=== PATIENT | male | born 1935 | race Caucasian/White ===

== ENCOUNTER 2016-12-24 09:27 | Outpatient (CLI) | payer MEDICARE | END 2016-12-24 09:28 | disposition home or self-care (01) | DX: N18.9 Chronic kidney disease, unspecified (principal); Z79.899 Other long term (current) drug therapy ==

== ENCOUNTER 2017-03-17 13:24 | Outpatient (CLI) | payer MEDICARE | END 2017-03-17 13:25 | disposition home or self-care (01) | DX: N18.9 Chronic kidney disease, unspecified (principal) ==

== ENCOUNTER 2017-07-02 09:52 | Outpatient (CLI) | payer MEDICARE ==
--- NOTE | 2017-07-02 11:21 | XRAY Report ---
THREE VIEW RIGHT KNEE: 07/02/2017 CLINICAL INDICATION: Pain. FINDINGS: Standing frontal, lateral, and sunrise views of the right knee were performed. Minimal osteoarthritis is present, with tiny osteophytes. There is no evidence of acute fracture or d islocation. No effusion is present. IMPRESSION: MINIMAL OSTEOARTHRITIS. JOB #: [id number] EXT JOB #:[id number]
== END 2017-07-02 09:53 | disposition home or self-care (01) ==
LOC: DI 09:52
PROVIDERS: ATTEND Nurse Practitioner Primary Care
DX: M25.561 Pain in right knee (principal); M17.11 Unilateral primary osteoarthritis, right knee

== ENCOUNTER 2017-12-13 08:36 | Emergency (ER) | payer MEDICARE ==
[2017-12-13 08:43] VITALS: BP 139/69
--- NOTE | 2017-12-13 09:52 | ED Physician Documentation ---
PD HPI Fall - Stated complaint Stated Complaint: GLF/BACK PX - Chief complaint Chief Complaint: Back Pain - History obtained from History obtained from: Patient - History of Present Illness Mechanism of injury: Slipped Fall distance: Standing position Where injury occurred: Home Timing - onset: How many days ago (10) Injury(ies) location: Back Quality of pain: Pain Associated symptoms: No: LOC, AMS, Amnesia Symptoms improve with: Rest, Meds Worsens with: Movement, Palpation Contributing factors: No: Anticoagulated Similar symptoms before: Has not had sx before Recently seen: Not recently seen - Additional information Additional information: 82-year-old male with a history of hypertension was walking down some steps missed last step and landed on the upper portion of his back across the steps. He has had some pain in between his shoulder blades since that time it is persisted here at 10 days and he is having some pain around to the front as well. He does not have shortness of breath he does have pain with a deep breath. Review of Systems Constitutional: denies: Fever Eyes: denies: Decreased vision Ears: denies: Ear pain Nose: denies: Congestion Throat: denies: Sore throat Cardiac: denies: Chest pain / pressure, Palpitations Respiratory: denies: Dyspnea, Cough GI: reports: Abdominal Pain. denies: Nausea, Vomiting, Constipation, Diarrhea : denies: Dysuria, Frequency Skin: denies: Rash Musculoskeletal: reports: Back pain. denies: Neck pain, Extremity pain Neurologic: denies: Generalized weakness, Focal weakness, Numbness PD PAST MEDICAL HISTORY - Past Medical History Past Medical History: Yes Cardiovascular: Hypertension - Past Surgical History Past Surgical History: Yes General: Cholecystectomy - Present Medications Home Medications: Ambulatory Orders Medication Instructions Recorded Confirmed Aspirin [Children's Aspirin] 81 mg PO DAILY 09/11/13 05/03/15 Finasteride 5 mg PO DAILY 09/11/13 05/03/15 Hydrochlorothiazide 25 mg PO DAILY 09/11/13 05/03/15 Lisinopril 40 mg PO DAILY 09/11/13 05/03/15 NIFEdipine [Procardia Xl] 60 mg PO DAILY 09/11/13 05/03/15 Pravastatin Sodium [Pravachol] 80 mg PO DAILY 09/11/13 05/03/15 Acetaminophen/Cod 300/30 [Tylenol 1 tab PO DAILY 03/22/15 05/03/15 #3] - Allergies Allergies/Adverse Reactions: Allergies Allergy/AdvReac Type Severity Reaction Status Date / Time No Known Drug Allergies Allergy Verified 09/22/14 12:03 - Social History Does the pt smoke?: No Smoking Status: Never smoker Does the pt drink ETOH?: Yes Does the pt have substance abuse?: No - Immunizations Immunizations are current?: Yes PD ED PE NORMAL - Vitals Vital signs reviewed: Yes (hypertensive ) - General General: Alert and oriented X 3, No acute distress, Well developed/nourished - HEENT HEENT: Atraumatic, PERRL, EOMI - Neck Neck: Supple, no meningeal sign - Cardiac Cardiac: RRR, No murmur - Respiratory Respiratory: No respiratory distress, Clear bilaterally, Other (There is point tenderness to the mid upper back between the shoulder blades. There is tenderness midline. ) - Abdomen Abdomen: Soft, Non tender, Other (well healed surgical scars) - Back Back: No CVA TTP - Derm Derm: Normal color, Warm and dry, No rash - Extremities Extremities: No deformity, No edema - Neuro Neuro: Alert and oriented X 3, No motor deficit, No sensory deficit, Normal speech Eye Opening: Spontaneous Motor: Obeys Commands Verbal: Oriented GCS Score: 15 - Psych Psych: Normal mood, Normal affect Results - Vitals Vitals: Vital Signs - 24 hr 12/13/17 08:40 Temperature 36.0 C L Heart Rate 69 Respiratory 18 Rate Blood Pressure 139/69 H O2 Saturation 94 Oxygen O2 Source Room air Departure - Departure Disposition: 01 Home, Self Care Clinical Impression: Mass in chest Compression fracture of thoracic vertebra Qualifiers: Encounter type: initial encounter Fracture type: closed Qualified Code(s): S22.000A - Wedge compression fracture of unspecified thoracic vertebra, initial encounter for closed fracture Condition: Stable Instructions: ED Fx Comp Vertebral Follow-Up: Stephanie Conway PA-C [Primary Care Provider] - Comments: Today it appears the cause of the pain you are having your back is related to a compression fracture in the thoracic spine. This will cause you pain for about another month. It should lessen over the next 2 weeks. On your evaluation today an x-ray of your chest was obtained that shows concern for a mass in the left upper chest. You will need follow-up with your primary care doctor for further testing.
--- NOTE | 2017-12-13 10:01 | XRAY Report ---
EXAM: CHEST RADIOGRAPHY EXAM DATE: 12/13/2017 09:24 AM. CLINICAL HISTORY: Sob. COMPARISON: 04/20/2008. TECHNIQUE: 2 views. FINDINGS: Lungs/Pleura: New superior left upper lobe perihilar mass like opacity, 1.6 x 3 x 1.3 cm and new patc hy focal opacity in the left upper lobe evident. No pleural effusion. No pneumothorax. Mediastinum: Interval new or significant worsening mitral annular calcification without cardiomegaly is noted; there is small to moderate size hiatal hernia, moderately increased size since last exam. IMPRESSION: 1. New superior left upper lobe perihilar mass like opacity, 1.6 x 3 x 1.3 cm and new patchy focal op acity in the left upper lobe, suggesting new left upper lobe pulmonary malignant process, lung cancer versus left upper lobe pneumonia with hilar adenopathy; continued chest imaging follow up or further evaluation with chest CT using IV contrast is recommended. 2. Moderately sized hiatal hernia. 3. Interval new or significant worsening mitral annular calcification without cardiomegaly without ev idence of congestive heart failure. 4. Small moderately sized hiatal hernia. [facility] Referring Provider Line: [phone] SITE ID: [id number]
== END 2017-12-13 11:09 | disposition home or self-care (01) ==
LOC: ED 08:36
DX: R22.2 Localized swelling, mass and lump, trunk (principal); S22.000A Wedge compression fracture of unspecified thoracic vertebra, initial encounter for closed fracture; W01.0XXA Fall on same level from slipping, tripping and stumbling without subsequent striking against object, initial encounter; Y92.009 Unspecified place in unspecified non-institutional (private) residence as the place of occurrence of the external cause; I10 Essential (primary) hypertension
CPT/HCPCS: 71046; 93005; 99282; 99283

== ENCOUNTER 2017-12-24 11:10 | Outpatient (CLI) | payer MEDICARE ==
[2017-12-24] MEDS ORDERED: IOPAMIDOL-300 100 ML VIAL ONE (12:03)
[2017-12-24 13:01] LABS: CREATININE 1.6 mg/dL (0.6-1.2)
[2017-12-24] MEDS ORDERED: IOPAMIDOL-300 100 ML VIAL IVP ONE (17:14)
--- NOTE | 2017-12-24 18:32 | CT Report ---
EXAM: CT CHEST EXAM DATE: 12/24/2017 02:46 PM. CLINICAL HISTORY: Left upper lobe consolidation. COMPARISONS: Chest x-ray 12/13/2017. TECHNIQUE: Routine helical CT imaging was performed through the chest. IV contrast: 40 mL of Isovue-3 00. Reconstructions: Coronal and sagittal. In accordance with CT protocol optimization, one or more of the following dose reduction techniques w ere utilized for this exam: automated exposure control, adjustment of mA and/or KV based on patient s ize, or use of iterative reconstructive technique. FINDINGS: Lungs/Pleura: Spiculated central 3.1 x 4.7 cm left upper lobe mass. Peripheral right upper lobe 3 mm groundglass nodule, image 18 series 4. No bronchial thickening, consolidation, or edema. Pulmonary va sculature is normal. No pericardial or pleural effusion. No pneumothorax. Mediastinum: Moderate hiatal hernia. Aortic and coronary artery calcification noted. Mitral valve rep lacement noted.. No adenopathy or masses. The heart and great vessels are normal. Bones: Moderate T7 burst fracture with mild retropulsion. Visualized Abdomen: Subcentimeter liver low densities, likely cysts. Other: None. IMPRESSION: 1. Spiculated central left upper lobe mass concerning for neoplasm. 2. Moderate hiatal hernia. 3. Stable moderate T7 burst fracture. [facility] Referring Provider Line: [phone] SITE ID: [id number]
== END 2017-12-24 11:11 | disposition home or self-care (01) ==
LOC: DI 11:10
PROVIDERS: ATTEND Physician Assistant Medical
DX: R91.8 Other nonspecific abnormal finding of lung field (principal); S22.061D Stable burst fracture of T7-T8 vertebra, subsequent encounter for fracture with routine healing; K44.9 Diaphragmatic hernia without obstruction or gangrene; N18.9 Chronic kidney disease, unspecified
CPT/HCPCS: 36415; 71260; 82565; Q9967

== ENCOUNTER 2018-01-13 09:48 | Outpatient (CLI) | payer MEDICARE ==
--- NOTE | 2018-01-13 11:01 | XRAY Report ---
TWO VIEW CHEST: 01/13/2018 COMPARISON: Chest CT 12/24/2017. INDICATION: Cough. TECHNIQUE: Two views. FINDINGS: Left upper lobe mass is again noted and has a similar appearance to recent CT. No focal consolidation is seen in other regards. No pneumothorax or pleural effusion. Mitral valve annular calcification is noted. T7 fracture appears stable. IMPRESSION: LEFT UPPER LOBE MASS. NO FOCAL CONSOLIDATION OTHERWISE. TD: 01/13/2018 11:01 [facility]
== END 2018-01-13 09:49 | disposition home or self-care (01) ==
LOC: DI 09:48
PROVIDERS: ATTEND Physician Assistant Medical
DX: R91.8 Other nonspecific abnormal finding of lung field (principal)
CPT/HCPCS: 71046

== ENCOUNTER 2018-02-16 19:40 | Observation (INO) | payer MEDICARE ==
[2018-02-16] MEDS ORDERED: oxyCODONE 5 MG TABLET PO STA (20:04)
--- NOTE | 2018-02-16 20:05 | ED Physician Documentation ---
History of Present Illness - Stated complaint Stated Complaint: LEFT SIDE PX - Chief complaint Chief Complaint: General - History obtained from History obtained from: Patient, Family - History of Present Illness Timing: Other (He had a fine-needle biopsy of a lung mass done yesterday in [place] around 2 PM. Per the daughter he had a postprocedural x-ray without evidence of pneumothorax. About an hour ago he developed left-sided chest soreness without shortness of breath.) Review of Systems Constitutional: denies: Fever, Chills Cardiac: reports: Chest pain / pressure. denies: Palpitations Respiratory: denies: Dyspnea, Cough GI: denies: Abdominal Pain, Nausea, Vomiting PD PAST MEDICAL HISTORY - Past Medical History Cardiovascular: Hypertension - Past Surgical History Past Surgical History: Yes General: Cholecystectomy - Present Medications Home Medications: Ambulatory Orders Medication Instructions Recorded Confirmed Aspirin [Children's Aspirin] 81 mg PO DAILY 09/11/13 05/03/15 Finasteride 5 mg PO DAILY 09/11/13 05/03/15 Hydrochlorothiazide 25 mg PO DAILY 09/11/13 05/03/15 Lisinopril 40 mg PO DAILY 09/11/13 05/03/15 NIFEdipine [Procardia Xl] 60 mg PO DAILY 09/11/13 05/03/15 Pravastatin Sodium [Pravachol] 80 mg PO DAILY 09/11/13 05/03/15 Acetaminophen/Cod 300/30 [Tylenol 1 tab PO DAILY 03/22/15 05/03/15 #3] - Allergies Allergies/Adverse Reactions: Allergies Allergy/AdvReac Type Severity Reaction Status Date / Time No Known Drug Allergies Allergy Verified 02/16/18 19:49 - Social History Does the pt smoke?: No Smoking Status: Never smoker Does the pt drink ETOH?: Yes Does the pt have substance abuse?: No - Immunizations Immunizations are current?: Yes PD ED PE NORMAL - Vitals Vital signs reviewed: Yes - General General: Alert and oriented X 3, No acute distress - HEENT HEENT: PERRL, EOMI - Neck Neck: Supple, no meningeal sign, No bony TTP - Cardiac Cardiac: RRR, No murmur - Respiratory Respiratory: No respiratory distress, Clear bilaterally - Abdomen Abdomen: Non tender - Extremities Extremities: No edema, No calf tenderness / cord - Neuro Neuro: Alert and oriented X 3, Normal speech - Psych Psych: Normal mood, Normal affect Results - Vitals Vitals: Vital Signs - 24 hr 02/16/18 19:46 Temperature 36.7 C Heart Rate 69 Respiratory 18 Rate Blood Pressure 160/76 H O2 Saturation 98 Oxygen O2 Source Room air - EKG (time done) 2009 Rate: Rate (enter#) (67) Rhythm: NSR Colony: Normal Intervals: Normal SC QRS: Normal Ischemia: Non specific changes (Mild inferior and lateral ST depression which is similar and unchanged from last EKG on file dated December [id number].) Computer interpretation: Agree with computer - Rads (name of study) 2v chest Radiology: EMP read contemporaneously (9 mm left apical pneumothorax) PD MEDICAL DECISION MAKING - ED course ED course: 32-year-old gentleman with symptoms a day after fine-needle biopsy of a lung mass and is found to have a small pneumothorax, spoke with Dr. Hussein for observation as he will need to be monitored and have a repeat chest x-ray in the morning to confirm its stability. Departure - Departure Disposition: ED Place in Observation Clinical Impression: Pneumothorax after biopsy Condition: Good Discharge Date/Time: 02/16/18 21:41
--- NOTE | 2018-02-16 20:47 | XRAY Report ---
EXAM: CHEST RADIOGRAPHY EXAM DATE: 02/16/2018 08:38 PM. CLINICAL HISTORY: L chest pain s/p FNA BX. COMPARISON: 13 January 2018. TECHNIQUE: 2 views. FINDINGS: Lungs/Pleura: Small left pneumothorax measuring about 9 mm at the apex. Left upper lobe mass and othe r chronic findings again noted. No effusion. Mediastinum: Heart and mediastinal contours are unremarkable. Calcifications of mitral annulus. Other: Small amount of subcutaneous emphysema on the left. IMPRESSION: Small left apical pneumothorax. [facility] The above findings were discussed with Dr. George by Dr. Kirby Salazar at 20:46 hrs on 02/16/18. Referring Provider Line: [phone] SITE ID: [id number]
[2018-02-16] MEDS ORDERED: oxyCODONE 5 MG TABLET PO PRN (21:05)
[2018-02-16] MEDS ORDERED: SODIUM CHLORIDE FLUSH 0.9% 10 ML SYRINGE IVP PRN (21:05)
[2018-02-16] MEDS ORDERED: ACETAMINOPHEN 325 MG TABLET PO PRN (21:05)
[2018-02-16] MEDS ORDERED: ONDANSETRON ODT 4 MG TABLET TL PRN (21:05)
[2018-02-16] MEDS ORDERED: MORPHINE 2 MG/ML SYRINGE IVP PRN (23:24)
[2018-02-16] MEDS ORDERED: KETOROLAC 15 MG/ML VIAL IVP PRN (23:25)
--- NOTE | 2018-02-16 23:30 | HISTORY & PHYSICAL EXAMINATION ---
Chief Complaint - Chief Complaint Chief Complaint: left sided chest pain that is sharp and stabbing History of Present Illness - Admitted From Admitted From:: ED/home - History Obtained From Records Reviewed: [facility] History obtained from: Patient and Dr. Martinez Exam Limitations: pleuritic pain takes his breath away and can't speak for a moment - History of Present Illness HPI Comment/Other: He had a biopsy of the lung mass done yesterday at [facility]. It post procedure chest x-ray was negative for pneumothorax. Today he started having pleuritic chest pain, and it has been getting steadily worse. He was brought to the emergency room where he has a small pneumothorax. He is now placed in observation to make sure the pneumothorax isn't getting any bigger. At this time he does not require a chest tube. He had fallen down the stairs at his daughter's house. He broke a vertebral body and had been getting followup films for that. During that evaluation he was found to have a mass on the lung and that was followed by subsequent CAT scan and lung biopsy. He denies any antecedent complaints of fever, cough, chills. He has been eating well and has no unexpected weight changes. He was an ex-smoker. Started smoking at the age of 8 and smoked a pack a day until approximately 1977. History - Past Medical History Cardiovascular: reports: Hypertension Respiratory: reports: Other (left lung mass as above) Neuro: reports: None Endocrine/Autoimmune: reports: None GI: reports: Hiatal hernia (with hiatal hernia repair. 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 He denies a history of hypertension, cancer, heart disease, thyroid disease, etc. He had 7 siblings. He is the youngest. They are all gone. He has 5 children. Again he denies a history of hypertension, cancer, heart disease or thyroid disease in them. He feels they're all really healthy Living arrangement: At home Living Situation: With family Social History Notes: He was born [place]. 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 He was to his first for 47 years and she in 2000. He was to his second and she in 2005. He moved to [facility] in 1997 to be close to one of his daughter who was in the [place]. He lived at the apartments at [facility] with his first until she . His second is a nurse who worked in [place] before her . He moved in with his daughter a little over a year ago because he needs help. But he still independent with regards to dress himself, feeding himself, and doesn' t use a walker. He started smoking at the age of 8, and quit in 1977 of one pack per day. He never had a problem with alcohol abuse. And he never did recreational substance abuse. - Substance History Use: Uses substance without health or social issues: NONE Abuse: Recurrent use of substance despite neg consequences: NONE - POLST Patient has POLST: No POLST Status: DNR Meds/Allgy - Home Medications Home Medications: Ambulatory Orders Medication Instructions Recorded Confirmed Aspirin [Children's Aspirin] 81 mg PO DAILY 09/11/13 05/03/15 Finasteride 5 mg PO DAILY 09/11/13 05/03/15 Hydrochlorothiazide 25 mg PO DAILY 09/11/13 05/03/15 Lisinopril 40 mg PO DAILY 09/11/13 05/03/15 NIFEdipine [Procardia Xl] 60 mg PO DAILY 09/11/13 05/03/15 Pravastatin Sodium [Pravachol] 80 mg PO DAILY 09/11/13 05/03/15 Acetaminophen/Cod 300/30 [Tylenol 1 tab PO DAILY 03/22/15 05/03/15 #3] - Allergies Allergies/Adverse Reactions: Allergies Allergy/AdvReac Type Severity Reaction Status Date / Time No Known Drug Allergies Allergy Verified 02/16/18 19:49 Review of Systems - Constitutional Constitutional: denies: Fatigue, Fever, Chills, Malaise, Weakness, Poor appetite , Night sweats - Eyes Eyes: denies: Pain, Irritation, Amaurosis, Blurred vision, Field loss - Ears, Nose & Throat Ears, Nose & Throat: reports: Hearing loss, Hearing aids. denies: Ear pain, Tinnitus, Vertigo, Nasal pain, Nasal discharge, Nasal congestion - Cardiovascular Cariovascular: reports: Chest pain (currently and since this am). denies: Irregular heart rate, Palpitations, Lightheadedness, Syncope - Respiratory Respiratory: reports: Pleuritic pain (since this morning). denies: Cough, Sputum production, Wheezing, Snoring - Gastrointestinal Gastrointestinal: denies: Abdominal pain, Abdominal distention, Constipation, Diarrhea, Change in bowel habits, Rectal bleeding, Nausea, Vomiting - Genitourinary Genitourinary: reports: Frequency, Urgency, Nocturia. denies: Dysuria, Hematuria, Incontinence, Flank pain - Musculoskeletal Musculoskeletal: reports: Stiffness, Joint pain (mild with major joints as he got older). denies: Muscle pain, Back pain, Muscle aches - Integumentary Integumentary: denies: Rash, Pruritis, Lesions, Dryness - Neurological Neurological: denies: General weakness, Focal weakness, Headache, Dizziness - Psychiatric Psychiatric: denies: Depression, Anxiety, Suicidal - Endocrine Endocrine: denies: Polyuria, Polydypsia, Polyphagia - Hematologic/Lymphatic Hematologic/Lymphatic: denies: Anemia, Bruising, Petechiae Exam - Vital Signs Reviewed Vital Signs: Yes Vital Signs: Vital Signs x48h Temp Pulse Resp BP Pulse Ox 02/16/18 21:19 37 C 63 20 139/73 H 97 - Physical Exam General Appearance: positive: Alert, Moderate distress (from the intermittent sharp stabbing left sided chest pain.) Eyes Bilateral: positive: PERRL, EOMI ENT: positive: Pharynx nml, Other (deaf with right hearing aide in place) Neck: positive: No JVD. negative: Stiff neck, Carotid bruit Respiratory: positive: Other (but he moans with the stabbing pain left chest, breath sounds equal, thorax expands w deep breath and he hurts). negative: Wheezes, Rales, Rhonchi Cardiovascular: positive: Regular rate & rhythm. negative: Systolic murmur, Gallop/S4, Friction rub Abdomen: positive: Non-tender, No organomegaly, Nml bowel sounds, No distention , Other (scar from hiatal hernia repair) Skin: positive: No rash, Warm, Dry Extremities: positive: Non-tender, Full ROM, No pedal edema Neurologic/Psychiatric: positive: Oriented x3, CN's nml (2-12) (except very deaf , even w hearing aide.), Motor nml Conclusion/Plan - Problem List (1) Pneumothorax after biopsy Conclusion/Plan: biopsy was done yesterday. small on CXR Plan: place in OBV Nasal canula O2 since some anecdotal studies show that O2 helps close up pneumothorax faster. manage pain. oxycodone isn't helping so will add morphine and toradol to let him sleep tonight repeat CXR in am If stable CXR can go home. (2) HTN (hypertension) Conclusion/Plan: mildly uncontrolled with sysolics >140 at 160-161 systolic. may be from his pain. resume ususal meds. Qualifiers: Hypertension type: essential hypertension Qualified Code(s): I10 - Essential (primary) hypertension - Lab Results Lab results reviewed: Yes - Diagnostic Imaging Results Diagnostic Imaging Results: positive: Final report reviewed - EKG Results EKG Interpreted Independently: No Core Measures - Anticipated LOS I expect patient to be DC'd or transferred within 96 hours.: Yes - DVT/VTE - Prophylaxis VTE/DVT Device ordered at admit?: Yes
[2018-02-17] MEDS: SODIUM CHLORIDE FLUSH 0.9% 10 ML SYRINGE IVP SCH ×2 (00:21→10:27)
[2018-02-17] MEDS: PANTOPRAZOLE 40 MG TABLET PO SCH ×2 (00:58→05:47)
[2018-02-17 08:46] LABS: BASOPHILS % (AUTO) 0.3 %; EOSINOPHILS % (AUTO) 0.4 %; HGB - HEMOGLOBIN 12.6 g/dL (14.0-18.0); LYMPHOCYTES # (AUTO) 0.9 10^3/uL (1.5-3.5); LYMPHOCYTES % (AUTO) 9.1 %; MEAN CORPUSCULAR HEMOGLOBIN 33.3 pg (27.0-31.0); MEAN CORPUSCULAR HGB CONC 33.5 g/dL (32.0-36.0); MEAN CORPUSCULAR VOLUME 99.2 fL (80.0-94.0); MEAN PLATELET VOLUME 10.1 fL (7.4-11.4); MONOCYTES # (AUTO) 0.7 10^3/uL (0.0-1.0); MONOCYTES % (AUTO) 7.4 %; NEUTROPHILS # (AUTO) 8.2 10^3/uL (1.5-6.6); NEUTROPHILS % (AUTO) 82.8 %; PLT - PLATELET COUNT 169 10^3/uL (130-450); RED CELL DISTRIBUTION WIDTH 13.5 % (12.0-15.0); WHITE BLOOD COUNT 9.9 x10^3/uL (4.8-10.8)
[2018-02-17 08:59] LABS: ALBUMIN 3.9 g/dL (3.2-5.5); ALBUMIN/GLOBULIN RATIO 1.3 (1.0-2.2); BILIRUBIN,TOTAL 0.8 mg/dL (0.2-1.0); CALCIUM 8.8 mg/dL (8.5-10.3); CREATININE 1.6 mg/dL (0.6-1.2); TOTAL PROTEIN 6.8 g/dL (6.7-8.2)
[2018-02-17] MEDS ORDERED: NIFEdipine ER 30 MG TABLET PO SCH (09:00)
[2018-02-17] MEDS ORDERED: hydroCHLOROthiazide 25 MG TABLET PO SCH (09:00)
[2018-02-17] MEDS ORDERED: FINASTERIDE 5 MG TABLET PO SCH (09:00)
[2018-02-17] MEDS ORDERED: LISINOPRIL 20 MG TABLET PO SCH (09:00)
[2018-02-17] MEDS ORDERED: POLYETHYLENE GLYCOL 3350 17 GM PACKET PO SCH (09:00)
[2018-02-17] MEDS ORDERED: ASPIRIN CHEW 81 MG TABLET PO SCH (09:00)
--- NOTE | 2018-02-17 10:14 | XRAY Report ---
TWO VIEW CHEST: 02/17/2018 CLINICAL INDICATION: Followup left pneumothorax. FINDINGS: Frontal and lateral views of the chest demonstrate a stable small left apical pneumothorax. Left upper lobe mass is unchanged. Right lung remains clear. Small left effusion is present. IMPRESSION: STABLE SMALL LEFT PNEUMOTHORAX AND LEFT LUNG NODULE. TD: 02/17/2018 10:14
[2018-02-17 10:15] VITALS: BP 112/54
--- NOTE | 2018-02-17 11:32 | Discharge Plan ---
Discharge Plan Disposition: Home, Self Care Condition: Stable Prescriptions: oxyCODONE [Roxicodone] 5 mg PO Q4HR PRN #20 tablet PRN Reason: Pain 5 to 7 Diet: Regular Activity Restrictions: Activity as Tolerated Shower Restrictions: No (caregiver closely monitor, fall precaution) Instruction Topics: Pneumothorax, Oxycodone tablets or capsules Additional Instructions or Follow Up instructions: May follow up PCP on next Wednesday as pt's already scheduled. Should symptoms return or worsen, may present ER or call 911 for help. No Smoking: If you smoke, Please STOP! Call for help. Follow-up with: Stephanie Conway PA-C [Primary Care Provider] -
--- NOTE | 2018-02-17 11:38 | DISCHARGE SUMMARY ---
Discharge Summary Discharge Date: 02/17/18 Discharging Provider: DANIELS Primary Care Provider: Stephanie Elaine Condition at Discharge: Stable Discharge Disposition: 01 Home, Self Care Discharge Facility Name: home - DIAGNOSES Admission Diagnoses: (1) Pneumothorax after biopsy (2) HTN (hypertension) Discharge Diagnoses with Status of Each Condition: (1) Pneumothorax after biopsy stable in the second CXR, which reveals stable small penumothorax and left lung nodule. Pt did lung biopsy for the nodule in [place], he will have appointment with his manager speech on early next week. Pt denies any more chest pleurisy pain (2) HTN (hypertension) stable, continue to be managed by PCP. - HPI History of Present Illness: refer from Dr. Hussein's HPI on 02/16/18 for pt as the following: He had a biopsy of the lung mass done yesterday at [facility]. It post procedure chest x-ray was negative for pneumothorax. Today he started having pleuritic chest pain, and it has been getting steadily worse. He was brought to the emergency room where he has a small pneumothorax. He is now placed in observation to make sure the pneumothorax isn't getting any bigger. At this time he does not require a chest tube. He had fallen down the stairs at his daughter's house. He broke a vertebral body and had been getting followup films for that. During that evaluation he was found to have a mass on the lung and that was followed by subsequent CAT scan and lung biopsy. He denies any antecedent complaints of fever, cough, chills. He has been eating well and has no unexpected weight changes. He was an ex-smoker. Started smoking at the age of 8 and smoked a pack a day until approximately 1977. - HOSPITAL COURSE Hospital Course: pt was admitted in observation unit to monitor if his small penumothorax deteriorate. The second CXR reveals stable, no deterioration. Pt denies any more pleurisy pain. - ALLERGIES Allergies/Adverse Reactions: Allergies Allergy/AdvReac Type Severity Reaction Status Date / Time No Known Drug Allergies Allergy Verified 02/16/18 19:49 - MEDICATIONS Home Medications: Ambulatory Orders Medication Instructions Recorded Confirmed Aspirin [Children's Aspirin] 81 mg PO DAILY 09/11/13 02/17/18 Finasteride 5 mg PO DAILY 09/11/13 02/17/18 NIFEdipine [Procardia Xl] 30 mg PO BID 09/11/13 02/17/18 Pravastatin Sodium [Pravachol] 80 mg PO QPM 09/11/13 02/17/18 Acetaminophen/Cod 300/30 [Tylenol 1 tab PO TID PRN 03/22/15 02/17/18 #3] Acetaminophen [Tylenol Extra 500 - 1,000 mg PO Q6H PRN 02/17/18 02/17/18 Strength] Acetaminophen/Diphenhydramine 1 - 2 tab PO QPM PRN 02/17/18 02/17/18 [Tylenol Pm Ex-Strength Caplet] Albuterol Sulfate [Proair 1 - 2 puffs INH Q4H PRN 02/17/18 02/17/18 Respiclick] Lisinopril [Zestril] 20 mg PO DAILY 02/17/18 02/17/18 Metoprolol Succinate [Toprol Xl] 100 mg PO DAILY 02/17/18 02/17/18 Multivitamin [Theragran] 1 each PO DAILY 02/17/18 02/17/18 oxyCODONE [Roxicodone] 5 mg PO Q4HR PRN #20 tablet 02/17/18 - PHYSICAL EXAM AT DISCHARGE General Appearance: positive: No acute distress, Alert. negative: Lethargic Eyes Bilateral: positive: Normal inspection, PERRL, No lid inflammation, Conjunctivae nml ENT: positive: ENT inspection nml, Pharynx nml, No signs of dehydration. negative: Purulent nasal drainage, Pharyngeal erythema, Oral lesions Neck: positive: Nml inspection, Thyroid nml, No JVD, Trachea midline. negative : Thyromegaly, Lymphadenopathy (R), Lymphadenopathy (L), Stiff neck, Carotid bruit, Swelling/bruising, Tracheal deviation Respiratory: positive: Chest non-tender, No respiratory distress, Breath sounds nml. negative: Wheezes, Rales, Rhonchi Cardiovascular: positive: Regular rate & rhythm, No murmur, No gallop. negative : Irregularly irregular, Extrasystoles, Tachycardia, Bradycardia, Systolic murmur, Diastolic murmur Peripheral Pulses: positive: 2+ Abdomen: positive: Non-tender, No organomegaly, Nml bowel sounds, No distention. negative: Tenderness, Guarding, Rebound Back: positive: Nml inspection. negative: CVA tenderness (R), CVA tenderness (L ) Skin: positive: Color nml, No rash, Warm, Dry. negative: Cyanosis, Diaphoresis , Pallor Extremities: positive: Non-tender, Full ROM, Nml appearance. negative: Calf tenderness, Joint swelling, Namita's sign/cords Neurologic/Psychiatric: positive: Oriented x3, Sensation nml, Mood/affect nml. negative: Sensory loss, Facial droop, Slurred/abnml speech, Depressed mood/ affect - LABS Result Diagrams: 02/17/18 08:41 02/17/18 08:41 - FOLLOW UP Follow Up: May follow up PCP in 2-3 days, and follow up manager speech appointment as the schedule. Should symptoms return or worsen, may present ER or call 911 for help. - TIME SPENT Time Spent in Discharge (Minutes): 35
[2018-02-17] MEDS ORDERED: PRAVASTATIN 40 MG TABLET PO SCH (21:00)
== END 2018-02-17 12:47 | disposition home or self-care (01) ==
LOC: ED 19:40 → OBS 21:05
PROVIDERS: ADMIT Specialist; ATTEND Nurse Practitioner Gerontology
DX: J95.811 Postprocedural pneumothorax (principal); Y84.8 Other medical procedures as the cause of abnormal reaction of the patient, or of later complication, without mention of misadventure at the time of the procedure; I10 Essential (primary) hypertension; R91.1 Solitary pulmonary nodule; N40.1 Benign prostatic hyperplasia with lower urinary tract symptoms; R35.0 Frequency of micturition; R35.1 Nocturia; R39.15 Urgency of urination; H91.91 Unspecified hearing loss, right ear; Z79.82 Long term (current) use of aspirin; Z91.81 History of falling; Z87.891 Personal history of nicotine dependence; Z66 Do not resuscitate
CPT/HCPCS: 36415; 71046; 80053; 83735; 85025; 93005; 96374; 96375; 99283; 99284; A9270; G0378; J2270

== ENCOUNTER 2018-03-09 12:37 | Outpatient (CLI) | payer MEDICARE ==
[2018-03-09] MEDS ORDERED: GADOBUTROL 7.5 MMOL/7.5 ML SYRINGE ONE (12:53)
[2018-03-09] MEDS ORDERED: GADOBUTROL 7.5 MMOL/7.5 ML SYRINGE IVP ONE (13:31)
--- NOTE | 2018-03-10 10:20 | MRI Report ---
EXAM: MRI BRAIN WITHOUT AND WITH CONTRAST. EXAM DATE: 03/09/2018 01:35 PM. CLINICAL HISTORY: Adenocarcinoma of the left lung. Tumor staging. Evaluate for metastasis to the brai n. COMPARISON: 06/15/2007. TECHNIQUE: Multiplanar, multisequence T1-weighted and fluid-sensitive MR sequences of the brain were performed. Sequences optimized for routine evaluation. Other: None. IV Contrast: 7ML GADAVIST. FINDINGS: No intracranial enhancing or space occupying mass is seen to suggest the presence of intracranial met astatic disease. No acute hemorrhage or stroke. No mass effect or midline shift. [id number] diffuse atrophy. Moderately prominent and progressive patchy, nodular and confluent cerebral white matter disease, lik yennifer from aging and chronic microangiopathy involving the deep and periventricular regions of both cer ebral hemispheres. 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 No focal pathologic appearing marrow signal changes in the skull and clivus. Multifocal paranasal sinus mucosal thickening. Left maxillary sinus air-fluid level. Right maxillary sinus mucosal retention cyst. Loss of the normal distal left ICA flow void. This was present previously and is suggestive of chroni c left ICA occlusion. IMPRESSION: 1. No evidence for acute intracranial abnormality. 2. No evidence for brain metastasis. 3. Progressive generalized moderately prominent senescent changes. 4. Sinusitis. 5. 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 [facility] Referring Provider Line: [phone] SITE ID: [id number]
== END 2018-03-09 12:38 | disposition home or self-care (01) ==
LOC: DI 12:37
PROVIDERS: ATTEND Physician Assistant Medical
DX: C34.92 Malignant neoplasm of unspecified part of left bronchus or lung (principal); J32.9 Chronic sinusitis, unspecified
CPT/HCPCS: 70553; A9585

== ENCOUNTER 2018-05-09 05:55 | Outpatient (CLI) | payer MEDICARE | END 2018-05-09 05:56 | disposition critical access hospital (66) | LOC: EMS 05:55 | PROVIDERS: ATTEND Surgery | DX: R52 Pain, unspecified (principal) | CPT/HCPCS: A0425; A0429 ==

== ENCOUNTER 2018-05-09 06:06 | Emergency (ER) | payer MEDICARE ==
[2018-05-09] MEDS ORDERED: SODIUM CHLORIDE 0.9% 500 ML IV ONE (06:38)
[2018-05-09] MEDS ORDERED: MORPHINE 10 MG/ML VIAL IVP STA (06:38)
[2018-05-09] MEDS ORDERED: ONDANSETRON 4 MG/2 ML VIAL IVP STA (06:38)
--- NOTE | 2018-05-09 07:09 | ED Physician Documentation ---
PD HPI CHEST PAIN - Stated complaint Stated Complaint: INCISION PAIN - Chief complaint Chief Complaint: Wound - History obtained from History obtained from: Patient - History of Present Illness Timing - onset: How many days ago (4) Timing - onset during: Light activity (he had thorascopic upper lobectomy left side for lung CA 4 days ago and discharged yesterday. Had been getting pain meds in the hospital. Discharged with Rx but had not gotten it filled as yet. Had more pain left chest today. Denies any worse dyspnea, and denies fevers.) Timing - duration: Days (worse today) Timing - details: Gradual onset, Waxing and waning Quality: Sharp, Pain Location: Left chest Radiation: Abdominal Improved by: Rest Worsened by: Inspiration, Movement Associated symptoms: Shortness of air (since surgery), Other (no BM for 4 days) . No: Nausea, Vomiting, Feeling faint / dizzy Recently seen: Surgery (Rosa Jean, upper lobectomy on left.) Review of Systems Constitutional: denies: Fever, Chills Nose: denies: Rhinorrhea / runny nose, Congestion Throat: denies: Sore throat Cardiac: reports: Chest pain / pressure. denies: Palpitations Respiratory: reports: Dyspnea, Cough (mild). denies: Wheezing GI: reports: Abdominal Pain, Constipation. denies: Nausea, Vomiting, Diarrhea : denies: Dysuria, Frequency Musculoskeletal: denies: Extremity swelling Neurologic: reports: Generalized weakness. denies: Focal weakness, Numbness PD PAST MEDICAL HISTORY - Past Medical History Cardiovascular: Hypertension Respiratory: Other Endocrine/Autoimmune: None GI: Hiatal hernia [employer]: None : Benign prostate hypertrophy HEENT: Chronic hearing loss Psych: None Musculoskeletal: Osteoarthritis Derm: None - Past Surgical History Past Surgical History: Yes General: Cholecystectomy Cardiovascular: Lobectomy - Present Medications Home Medications: Ambulatory Orders Medication Instructions Recorded Confirmed Aspirin [Children's Aspirin] 81 mg PO DAILY 09/11/13 02/17/18 Finasteride 5 mg PO DAILY 09/11/13 02/17/18 NIFEdipine [Procardia Xl] 30 mg PO BID 09/11/13 02/17/18 Pravastatin Sodium [Pravachol] 80 mg PO QPM 09/11/13 02/17/18 Acetaminophen/Cod 300/30 [Tylenol 1 tab PO TID PRN 03/22/15 02/17/18 #3] Acetaminophen [Tylenol Extra 500 - 1,000 mg PO Q6H PRN 02/17/18 02/17/18 Strength] Acetaminophen/Diphenhydramine 1 - 2 tab PO QPM PRN 02/17/18 02/17/18 [Tylenol Pm Ex-Strength Caplet] Albuterol Sulfate [Proair 1 - 2 puffs INH Q4H PRN 02/17/18 02/17/18 Respiclick] Lisinopril [Zestril] 20 mg PO DAILY 02/17/18 02/17/18 Metoprolol Succinate [Toprol Xl] 100 mg PO DAILY 02/17/18 02/17/18 Multivitamin [Theragran] 1 each PO DAILY 02/17/18 02/17/18 oxyCODONE [Roxicodone] 5 mg PO Q4HR PRN #20 tablet 02/17/18 - Allergies Allergies/Adverse Reactions: Allergies Allergy/AdvReac Type Severity Reaction Status Date / Time No Known Drug Allergies Allergy Verified 05/09/18 06:15 - Social History Does the pt smoke?: No Smoking Status: Never smoker Does the pt drink ETOH?: Yes Does the pt have substance abuse?: No - Immunizations Immunizations are current?: Yes - POLST Patient has POLST: No POLST Status: DNR PD ED PE NORMAL - Vitals Vital signs reviewed: Yes - General General: Alert and oriented X 3, Well developed/nourished - HEENT HEENT: Atraumatic, Pharynx benign - Neck Neck: Supple, no meningeal sign, No adenopathy, No JVD, No bruit - Cardiac Cardiac: RRR, Other (1/6 murmur left side.) - Respiratory Respiratory: No: Clear bilaterally (decreased sounds left base, but no wheezing nor coarse sounds. ) - Abdomen Abdomen: Normal bowel sounds, Soft, Non distended, No organomegaly, Other ( tender left abdomen without guarding. ) - Male Male : Deferred - Rectal Rectal: Deferred - Back Back: No CVA TTP - Derm Derm: Normal color, Warm and dry - Extremities Extremities: No deformity, No tenderness to palpate, Normal ROM s pain, No edema , No calf tenderness / cord - Neuro Neuro: Alert and oriented X 3, No motor deficit, No sensory deficit, Normal speech Eye Opening: Spontaneous Motor: Obeys Commands Verbal: Oriented GCS Score: 15 Results - Vitals Vitals: Oxygen O2 Source Room air - Labs Labs: Laboratory Tests 05/09/18 05/09/18 05/09/18 07:07 07:07 07:07 WBC 7.8 RBC 3.65 L Hgb 12.3 L Hct 37.5 L MCV 102.8 H MCH 33.8 H MCHC 32.8 RDW 13.0 Plt Count 223 MPV 9.6 Neut # (Auto) 6.5 Lymph # (Auto) 0.6 L Loup # (Auto) 0.6 Eos # (Auto) 0.1 Baso # (Auto) 0.0 Absolute Nucleated RBC 0.00 Nucleated RBC % 0.0 Sodium 141 Potassium 4.3 Chloride 110 Carbon Dioxide 21 Anion Gap 10.0 BUN 33 H Creatinine 1.7 H Estimated GFR (MDRD) 39 L Glucose 146 H Calcium 8.8 Magnesium 2.0 Total Bilirubin 0.9 AST 16 ALT 11 Alkaline Phosphatase 51 Total Creatine Kinase 77 Troponin I < 0.04 B-Natriuretic Peptide Total Protein 6.7 Albumin 3.2 Globulin 3.5 Albumin/Globulin Ratio 0.9 L Lipase 20 L Urine Color Urine Clarity Urine pH Ur Specific [place] Urine Protein Urine Glucose (UA) Urine Ketones Urine Occult Blood Urine Nitrite Urine Bilirubin Urine Urobilinogen Ur Leukocyte Esterase Ur Microscopic Review Urine Culture Comments 05/09/18 05/09/18 07:07 10:40 WBC RBC Hgb Hct MCV MCH MCHC RDW Plt Count MPV Neut # (Auto) Lymph # (Auto) Loup # (Auto) Eos # (Auto) Baso # (Auto) Absolute Nucleated RBC Nucleated RBC % Sodium Potassium Chloride Carbon Dioxide Anion Gap BUN Creatinine Estimated GFR (MDRD) Glucose Calcium Magnesium Total Bilirubin AST ALT Alkaline Phosphatase Total Creatine Kinase Troponin I B-Natriuretic Peptide 459 H Total Protein Albumin Globulin Albumin/Globulin Ratio Lipase Urine Color YELLOW Urine Clarity CLEAR Urine pH 6.0 Ur Specific [place] 1.025 Urine Protein NEGATIVE Urine Glucose (UA) NEGATIVE Urine Ketones TRACE Urine Occult Blood NEGATIVE Urine Nitrite NEGATIVE Urine Bilirubin NEGATIVE Urine Urobilinogen 0.2 (NORMAL) Ur Leukocyte Esterase NEGATIVE Ur Microscopic Review NOT INDICATED Urine Culture Comments NOT INDICATED - Rads (name of study) chest xray Radiology: Prelim report reviewed (small pneumothorax on left, 10 mm compared to 7 mm yesterday. Small effusion. ) abd CT Radiology: Prelim report reviewed (no acute findings) PD MEDICAL DECISION MAKING - ED course Complexity details: reviewed results (persistent pneumothorax, slightly larger than yesterday. Will check with CT surgery to see if significant.), considered differential (Seems post op pain and he did not get Rx for meds. Will give some pain meds. Check labs and CXR. He has some abd tender, so will get CT. ), d/w patient, d/w family (family considers if Rehab would be good, but patient wants to go home. ), d/w organizational research consultant (Dr. Jean, who said CXR findings are okay c/w postop. ) - Sepsis Event Vital Signs: Oxygen O2 Source Room air Departure - Departure Disposition: Home, Self Care Clinical Impression: Post-op pain, Tachycardia, Pneumothorax on left Condition: Stable Record reviewed to determine appropriate education?: Yes Follow-Up: Stephanie Conway PA-C [Primary Care Provider] - ARLENE JEAN MD [Physician No Access] - Comments: Continue usual medications. Your heart rate is a little fast this morning which might be related to not having had your morning medications. Might have been some under hydration. Your given some IV fluids. You do have a small persistent pneumothorax around the lung on that side and Dr. Jean said this is normal and is the same as it was in the hospital. This should resolve on its own over several more days to week. This can be increasing the amount of pain on that side. Use some anti-inflammatories such as naproxen or ibuprofen twice daily. He will likely need your prescription pain medicines a few times a day still for the next several days to week. Add a stool softener such as docusate to reduce constipation. Call Dr. Jean's office if not improved over the next few days or follow-up with your primary care. Discharge Date/Time: 05/09/18 13:31
[2018-05-09 07:13] LABS: BASOPHILS % (AUTO) 0.2 %; EOSINOPHILS # (AUTO) 0.1 10^3/uL (0.0-0.7); EOSINOPHILS % (AUTO) 1.7 %; HGB - HEMOGLOBIN 12.3 g/dL (14.0-18.0); LYMPHOCYTES # (AUTO) 0.6 10^3/uL (1.5-3.5); LYMPHOCYTES % (AUTO) 7.3 %; MEAN CORPUSCULAR HEMOGLOBIN 33.8 pg (27.0-31.0); MEAN CORPUSCULAR HGB CONC 32.8 g/dL (32.0-36.0); MEAN CORPUSCULAR VOLUME 102.8 fL (80.0-94.0); MEAN PLATELET VOLUME 9.6 fL (7.4-11.4); MONOCYTES # (AUTO) 0.6 10^3/uL (0.0-1.0); MONOCYTES % (AUTO) 7.7 %; NEUTROPHILS # (AUTO) 6.5 10^3/uL (1.5-6.6); NEUTROPHILS % (AUTO) 83.1 %; PLT - PLATELET COUNT 223 10^3/uL (130-450); RED BLOOD COUNT 3.65 10^6/uL (4.70-6.10); WHITE BLOOD COUNT 7.8 x10^3/uL (4.8-10.8)
[2018-05-09 07:27] LABS: ALBUMIN 3.2 g/dL (3.2-5.5); ALBUMIN/GLOBULIN RATIO 0.9 (1.0-2.2); BILIRUBIN,TOTAL 0.9 mg/dL (0.2-1.0); CALCIUM 8.8 mg/dL (8.5-10.3); CREATININE 1.7 mg/dL (0.6-1.2); TOTAL PROTEIN 6.7 g/dL (6.7-8.2)
[2018-05-09] MEDS ORDERED: IOPAMIDOL-300 100 ML VIAL ONE (07:40)
--- NOTE | 2018-05-09 08:03 | XRAY Report ---
Procedure Date: 05/09/2018 Accession Number: [id number] / [id number] Procedure: XR - Chest 2 View X-Ray CPT Code: 09253 FULL RESULT: EXAM: CHEST RADIOGRAPHY EXAM DATE: 05/09/2018 07:32 AM. CLINICAL HISTORY: CP. Recent thorascopic wedge resection. COMPARISON: 05/08/2018 (images only; no report) from [facility] [place]. TECHNIQUE: 2 views. 3 images are provided. FINDINGS: Lungs/Pleura: Small left pneumothorax with 10 mm pleural separation at the apex, previously 7 mm. No right pneumothorax. Small left pleural effusion. No definite right pleural effusion. Mild elevation of the left hemidiaphragm as before. Hazy and reticular left basilar opacities. No focal consolidation on the right. Mediastinum: The cardiac silhouette is normal in size. Atherosclerotic, mildly tortuous thoracic aorta as before. Other: None. IMPRESSION: Small left pneumothorax, minimally increased in size compared to yesterday. Small left pleural effusion with associated atelectasis versus consolidation, also increased compared to prior. Results discussed with Dr. Hdez at 0750 hrs. [facility]
--- NOTE | 2018-05-09 08:14 | CT Report ---
Procedure Date: 05/09/2018 Accession Number: [id number] / [id number] Procedure: CT - Abdomen/Pelvis W/O CPT Code: FULL RESULT: EXAM: CT ABDOMEN AND PELVIS (CT KUB) EXAM DATE: 05/09/2018 07:44 AM. CLINICAL HISTORY: LEFT ABDOMEN PAIN, POST OP day 4 left lung lOBECTOMY. COMPARISONS: None. TECHNIQUE: Routine axial helical CT imaging was performed through the abdomen and pelvis without IV contrast. Reconstructions: Coronal and sagittal. In accordance with CT protocol optimization, one or more of the following dose reduction techniques were utilized for this exam: automated exposure control, adjustment of mA and/or KV based on patient size, or use of iterative reconstructive technique. FINDINGS: Lung Bases: Trace right pleural effusion. Small to moderate left hydropneumothorax is partially imaged; there is up to 31 mm pleural separation anteriorly. The heart size is normal. Trace pericardial effusion. Mitral annular calcification. [id number] paraesophageal hiatal hernia. Right Kidney/Ureter: 7 mm nonobstructing upper pole calculus. Moderate atrophy. No hydronephrosis. Mild perinephric stranding may be chronic. Left Kidney/Ureter: No hydronephrosis or urinary tract calculi. Severe atrophy. Moderate perinephric stranding may be chronic. Other Solid Organs: Noncontrast images of the solid organs are grossly unremarkable. Gallbladder/Bile Ducts: The gallbladder is surgically absent. No evidence of biliary dilatation. Peritoneal Cavity: No ascites or pneumoperitoneum. No bowel obstruction or abnormal stool burden. Moderate diverticulosis, primarily sigmoid, without diverticulitis. No acute inflammatory stranding. Pelvic Organs: No bladder stones or wall thickening. Noncontrast images of the visualized pelvic organs are unremarkable. Vasculature: Moderate atherosclerosis without aneurysm. Other: None. IMPRESSION: 1. Small to moderate left hydropneumothorax partially imaged. This finding was conveyed to Dr. Hdez earlier this morning, following interpretation of the chest radiograph. 2. No evidence of acute abnormality in the abdomen or pelvis. [facility]
[2018-05-09] MEDS ORDERED: DOCUSATE SODIUM 100 MG CAPSULE PO STA (08:57)
[2018-05-09] MEDS ORDERED: METOPROLOL 5 MG/5 ML VIAL IVP STA ×2 (09:20→10:18)
[2018-05-09] MEDS ORDERED: SODIUM CHLORIDE 0.9% 1,000 ML IV ONE (10:18)
[2018-05-09 11:06] LABS: BILIRUBIN,URINE NEGATIVE (NEGATIVE); GLUCOSE, URINE (UA) NEGATIVE (NEGATIVE); KETONES,URINE (UA) TRACE mg/dL (NEGATIVE); LEUKOCYTE ESTERASE, URINE NEGATIVE (NEGATIVE); NITRITE,URINE NEGATIVE (NEGATIVE); OCCULT BLOOD,URINE NEGATIVE (NEGATIVE); PROTEIN,URINE NEGATIVE (NEGATIVE); UROBILINOGEN,URINE 0.2 (NORMAL) E.U./dL (NORMAL)
[2018-05-09 11:08] LABS: CLARITY,URINE CLEAR (CLEAR)
[2018-05-09 13:30] VITALS: BP 145/104
== END 2018-05-09 13:31 | disposition home or self-care (01) ==
LOC: EDUNIT# → EDBD → ED 06:06
DX: G89.18 Other acute postprocedural pain (principal); R00.0 Tachycardia, unspecified; J93.9 Pneumothorax, unspecified; C34.90 Malignant neoplasm of unspecified part of unspecified bronchus or lung; I45.81 Long QT syndrome; Z90.2 Acquired absence of lung [part of]
CPT/HCPCS: 36415; 71046; 74176; 80053; 81003; 82550; 83690; 83735; 83880; 84484; 85025; 93005; 96361; 96374; 96375; 96376; 99284; A9270; 81001; 87086

== ENCOUNTER 2018-05-12 11:26 | Emergency (ER) | payer MEDICARE ==
--- NOTE | 2018-05-12 11:56 | ED Physician Documentation ---
History of Present Illness - Stated complaint Stated Complaint: HIGH HR - Chief complaint Chief Complaint: Cardiac - History obtained from History obtained from: Patient, Family, EMS - History of Present Illness Timing: Unknown - Additonal information Additional information: 82 y/o male who is S/P lung lobe resection one week ago has come in to see his PMD today about an infection in his toe was found to have a heart rate of 150. The patient himself feels well and is unaware of the rapid rate. He denies dyspnea or chest pain with this. Review of Systems Constitutional: reports: Fatigue. denies: Fever, Chills Eyes: denies: Decreased vision Ears: denies: Ear pain Nose: denies: Rhinorrhea / runny nose, Congestion Throat: denies: Sore throat Cardiac: denies: Chest pain / pressure, Palpitations Respiratory: denies: Dyspnea, Cough GI: denies: Abdominal Pain, Nausea, Vomiting : denies: Dysuria, Frequency Skin: reports: Other (erythematous swollen right 2nd toe with extension to the dorsum of the foot.). denies: Rash Musculoskeletal: reports: Extremity pain. 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 : Benign prostate hypertrophy HEENT: Chronic hearing loss Psych: None Musculoskeletal: Osteoarthritis Derm: None - Past Surgical History Past Surgical History: Yes General: Cholecystectomy Cardiovascular: Lobectomy - Present Medications Home Medications: Ambulatory Orders Medication Instructions Recorded Confirmed Aspirin [Children's Aspirin] 81 mg PO DAILY 09/11/13 02/17/18 Finasteride 5 mg PO DAILY 09/11/13 02/17/18 NIFEdipine [Procardia Xl] 30 mg PO BID 09/11/13 02/17/18 Pravastatin Sodium [Pravachol] 80 mg PO QPM 09/11/13 02/17/18 Acetaminophen/Cod 300/30 [Tylenol 1 tab PO TID PRN 03/22/15 02/17/18 #3] Acetaminophen [Tylenol Extra 500 - 1,000 mg PO Q6H PRN 02/17/18 02/17/18 Strength] Acetaminophen/Diphenhydramine 1 - 2 tab PO QPM PRN 02/17/18 02/17/18 [Tylenol Pm Ex-Strength Caplet] Albuterol Sulfate [Proair 1 - 2 puffs INH Q4H PRN 02/17/18 02/17/18 Respiclick] Lisinopril [Zestril] 20 mg PO DAILY 02/17/18 02/17/18 Metoprolol Succinate [Toprol Xl] 100 mg PO DAILY 02/17/18 02/17/18 Multivitamin [Theragran] 1 each PO DAILY 02/17/18 02/17/18 oxyCODONE [Roxicodone] 5 mg PO Q4HR PRN #20 tablet 02/17/18 Apixaban [Eliquis] 2.5 mg PO BID #30 tablet 05/12/18 Cephalexin [Keflex] 500 mg PO QID #28 capsule 05/12/18 Digoxin 125 mcg PO DAILY #30 tablet 05/12/18 diltiaZEM CD [Cardizem Cd] 120 mg PO DAILY #30 capsule 05/12/18 - Allergies Allergies/Adverse Reactions: Allergies Allergy/AdvReac Type Severity Reaction Status Date / Time No Known Drug Allergies Allergy Verified 05/09/18 06:15 - Social History Does the pt smoke?: No Smoking Status: Never smoker Does the pt drink ETOH?: Yes Does the pt have substance abuse?: No - Immunizations Immunizations are current?: Yes - POLST Patient has POLST: No POLST Status: DNR PD ED PE NORMAL - Vitals Vital signs reviewed: Yes (hypotensive mild ) - General General: Alert and oriented X 3, No acute distress, Well developed/nourished - HEENT HEENT: Atraumatic, PERRL, EOMI - Neck Neck: Supple, no meningeal sign, No bony TTP - Cardiac Cardiac: No murmur, Other (tachycardic and regular ) - Respiratory Respiratory: No respiratory distress, Clear bilaterally - Abdomen Abdomen: Soft, Non tender - Back Back: No CVA TTP, No spinal TTP - Derm Derm: Normal color, Warm and dry, No rash - Extremities Extremities: No deformity, Other (erythematous swollen right 2nd toe with extension to the dorsum of the foot.) - Neuro Neuro: No motor deficit, No sensory deficit Eye Opening: Spontaneous Motor: Obeys Commands Verbal: Oriented GCS Score: 15 - Psych Psych: Normal mood, Normal affect Results - Vitals Vitals: Vital Signs - 24 hr 05/12/18 05/12/18 05/12/18 11:30 11:40 11:43 Temperature 36.9 C Heart Rate 15 L 151 H 149 H Respiratory 16 19 16 Rate Blood Pressure 91/37 L 94/76 114/85 H O2 Saturation 96 97 99 05/12/18 05/12/18 05/12/18 12:30 12:35 12:51 Temperature Heart Rate 152 H 152 H 150 H Respiratory 20 15 18 Rate Blood Pressure 119/89 H 108/77 102/76 O2 Saturation 94 95 95 05/12/18 05/12/18 05/12/18 13:20 14:15 14:33 Temperature Heart Rate 149 H 150 H 151 H Respiratory 14 21 19 Rate Blood Pressure 93/80 100/72 110/77 O2 Saturation 96 92 64 L 05/12/18 05/12/18 05/12/18 14:41 14:55 15:00 Temperature Heart Rate 150 H 60 70 Respiratory 19 18 20 Rate Blood Pressure 114/89 H 109/73 113/77 O2 Saturation 93 94 95 05/12/18 05/12/18 05/12/18 15:05 15:10 15:15 Temperature Heart Rate 77 96 103 H Respiratory 18 18 20 Rate Blood Pressure 103/78 108/66 111/79 O2 Saturation 94 96 94 05/12/18 05/12/18 05/12/18 15:45 16:00 16:16 Temperature Heart Rate 149 H 102 H 108 H Respiratory 21 20 20 Rate Blood Pressure 111/93 H 118/87 H 129/80 O2 Saturation 94 94 22 L 05/12/18 16:39 Temperature Heart Rate 147 H Respiratory 20 Rate Blood Pressure 102/83 H O2 Saturation 96 Oxygen O2 Source Room air - Labs Labs: Laboratory Tests 05/12/18 05/12/18 05/12/18 11:43 11:43 11:43 WBC 9.4 RBC 3.95 L Hgb 13.3 L Hct 40.0 L MCV 101.3 H MCH 33.7 H MCHC 33.3 RDW 13.2 Plt Count 274 MPV 10.2 Neut # (Auto) 7.2 H Lymph # (Auto) 1.2 L [place] # (Auto) 0.7 Eos # (Auto) 0.2 Baso # (Auto) 0.0 Absolute Nucleated RBC 0.00 Nucleated RBC % 0.0 Sodium 139 Potassium 4.6 Chloride 106 Carbon Dioxide 24 Anion Gap 9.0 BUN 37 H Creatinine 1.7 H Estimated GFR (MDRD) 39 L Glucose 116 H Calcium 9.0 Total Bilirubin 0.6 AST 16 ALT 15 Alkaline Phosphatase 61 Troponin I 0.11 B-Natriuretic Peptide Total Protein 6.8 Albumin 3.3 Globulin 3.5 Albumin/Globulin Ratio 0.9 L Lipase 47 05/12/18 11:43 WBC RBC Hgb Hct MCV MCH MCHC RDW Plt Count MPV Neut # (Auto) Lymph # (Auto) [place] # (Auto) Eos # (Auto) Baso # (Auto) Absolute Nucleated RBC Nucleated RBC % Sodium Potassium Chloride Carbon Dioxide Anion Gap BUN Creatinine Estimated GFR (MDRD) Glucose Calcium Total Bilirubin AST ALT Alkaline Phosphatase Troponin I B-Natriuretic Peptide 1342 H Total Protein Albumin Globulin Albumin/Globulin Ratio Lipase - Rads (name of study) 2 view chest Radiology: Prelim report reviewed (Impression: 1. Left hydropneumothorax, as before. Tiny lateral left apical pleural air component is decreased.2. Mild left basilar airspace opacity, decreased.), EMP read indepedently, See rad report Procedures - IVC sono (time) 1200 Bedside IVC sono: IVC measures (cm) (1.74), IVC collapsed c insp (cm) (1.34), Euvolemia PD MEDICAL DECISION MAKING - ED course Complexity details: reviewed old records, reviewed results, re-evaluated patient , considered differential, d/w patient, d/w family, d/w senior market intelligence consultant (Dr. Garcia cardiology at [facility] in [place] recommends PO cardiazem and load with dig with follow up in one week with labs to include dig level. He recommends anticoagulation as well. Dr. Kristal Loredo paper cone machine tender for Miranda (surgeon at [facility]) is consulted re: anticoagulation. The patient had a RATS -- robotic assisted thoracic surgery and did well with this. She indicates anticoagulation is not contra indicated in this patient at this time. ) ED course: 82-year-old male who is status post a recent laparoscopic lobectomy has gone into see his primary care to your doctor about an infection in his toe and he is found to have a rapid heart rate. He arrives to the emergency department with rapid regular rate of 150 he is given some metoprolol without change in his rate and he is subsequently administered adenosine which uncovers atrial flutter. He is administered diltiazem 20 mg intravenously with reduction in his rate to around 100. His foot has a cellulitis on the toe and this is treated with intravenous Rocephin. He is administered IV dig 0.5mg and PO cardizem 120xl. - Sepsis Event Vital Signs: Vital Signs - 24 hr 05/12/18 05/12/18 05/12/18 11:30 11:40 11:43 Temperature 36.9 C Heart Rate 15 L 151 H 149 H Respiratory 16 19 16 Rate Blood Pressure 91/37 L 94/76 114/85 H O2 Saturation 96 97 99 05/12/18 05/12/18 05/12/18 12:30 12:35 12:51 Temperature Heart Rate 152 H 152 H 150 H Respiratory 20 15 18 Rate Blood Pressure 119/89 H 108/77 102/76 O2 Saturation 94 95 95 05/12/18 05/12/18 05/12/18 13:20 14:15 14:33 Temperature Heart Rate 149 H 150 H 151 H Respiratory 14 21 19 Rate Blood Pressure 93/80 100/72 110/77 O2 Saturation 96 92 64 L 05/12/18 05/12/18 05/12/18 14:41 14:55 15:00 Temperature Heart Rate 150 H 60 70 Respiratory 19 18 20 Rate Blood Pressure 114/89 H 109/73 113/77 O2 Saturation 93 94 95 05/12/18 05/12/18 05/12/18 15:05 15:10 15:15 Temperature Heart Rate 77 96 103 H Respiratory 18 18 20 Rate Blood Pressure 103/78 108/66 111/79 O2 Saturation 94 96 94 05/12/18 05/12/18 05/12/18 15:45 16:00 16:16 Temperature Heart Rate 149 H 102 H 108 H Respiratory 21 20 20 Rate Blood Pressure 111/93 H 118/87 H 129/80 O2 Saturation 94 94 22 L 05/12/18 16:39 Temperature Heart Rate 147 H Respiratory 20 Rate Blood Pressure 102/83 H O2 Saturation 96 Oxygen O2 Source Room air Departure - Departure Disposition: 01 Home, Self Care Clinical Impression: Cellulitis of toe of right foot Atrial flutter Qualifiers: Atrial flutter type: typical Qualified Code(s): I48.3 - Typical atrial flutter Instructions: ED Paroxysmal Atrial Flutter, ED Infec Skin Cellulitis Follow-Up: Stephanie Conway PA-C [Primary Care Provider] - Mina Garcia MD [Physician No Access] - Prescriptions: Apixaban [Eliquis] 2.5 mg PO BID #30 tablet Cephalexin [Keflex] 500 mg PO QID #28 capsule Digoxin 125 mcg PO DAILY #30 tablet diltiaZEM CD [Cardizem Cd] 120 mg PO DAILY #30 capsule Comments: Today it looks like your rapid heart rate is related to an abnormal rhythm called atrial flutter. We have given you medications to control your rate. Continue to take these medications as prescribed. You will need to start on Cardizem and digoxin. In addition it is important to use anticoagulation and we have written a prescription for Eliquis as well. You will need to stop your metoprolol today. An antibiotic is been prescribed for the foot infection and the expectation is improvement day by day. If you have worsening of the redness on your foot return to the emergency department for admission to the hospital as this is a failure of outpatient treatment.
[2018-05-12 12:16] LABS: BASOPHILS % (AUTO) 0.4 %; EOSINOPHILS # (AUTO) 0.2 10^3/uL (0.0-0.7); EOSINOPHILS % (AUTO) 2.2 %; HGB - HEMOGLOBIN 13.3 g/dL (14.0-18.0); LYMPHOCYTES # (AUTO) 1.2 10^3/uL (1.5-3.5); LYMPHOCYTES % (AUTO) 13.1 %; MEAN CORPUSCULAR HEMOGLOBIN 33.7 pg (27.0-31.0); MEAN CORPUSCULAR HGB CONC 33.3 g/dL (32.0-36.0); MEAN CORPUSCULAR VOLUME 101.3 fL (80.0-94.0); MEAN PLATELET VOLUME 10.2 fL (7.4-11.4); MONOCYTES # (AUTO) 0.7 10^3/uL (0.0-1.0); MONOCYTES % (AUTO) 7.4 %; NEUTROPHILS # (AUTO) 7.2 10^3/uL (1.5-6.6); NEUTROPHILS % (AUTO) 76.9 %; PLT - PLATELET COUNT 274 10^3/uL (130-450); RED BLOOD COUNT 3.95 10^6/uL (4.70-6.10); RED CELL DISTRIBUTION WIDTH 13.2 % (12.0-15.0); WHITE BLOOD COUNT 9.4 x10^3/uL (4.8-10.8)
[2018-05-12] MEDS ORDERED: METOPROLOL 5 MG/5 ML VIAL IVP STA (12:18)
[2018-05-12 12:31] LABS: ALBUMIN 3.3 g/dL (3.2-5.5); ALBUMIN/GLOBULIN RATIO 0.9 (1.0-2.2); BILIRUBIN,TOTAL 0.6 mg/dL (0.2-1.0); CREATININE 1.7 mg/dL (0.6-1.2); TOTAL PROTEIN 6.8 g/dL (6.7-8.2)
[2018-05-12] MEDS ORDERED: ADENOSINE 6 MG/2 ML VIAL IVP STA ×2 (13:03→13:31)
--- NOTE | 2018-05-12 13:32 | XRAY Report ---
Procedure Date: 05/12/2018 Accession Number: [id number] / [id number] Procedure: XR - Chest 2 View X-Ray CPT Code: 00610 FULL RESULT: EXAM: CHEST RADIOGRAPHY EXAM DATE: 05/12/2018 12:26 PM. CLINICAL HISTORY: Tachycardia. Recent thorascopic lung wedge resection. COMPARISON: 05/19/2018. TECHNIQUE: 2 views. FINDINGS: Lungs/Pleura: Decreased small 5 mm lateral left apical pneumothorax. Air-fluid levels anteriorly and posteriorly in the left hemithorax on the lateral view consistent with hydropneumothorax, as before. Mild left basilar airspace opacity, decreased. Right lung clear. Mediastinum: Heart size upper normal and unchanged. Moderate aortic arch calcification. Other: None. IMPRESSION: 1. Left hydropneumothorax, as before. Tiny lateral left apical pleural air component is decreased. 2. Mild left basilar airspace opacity, decreased. RADIA
[2018-05-12] MEDS ORDERED: diltiaZEM INJ 5 MG/ML VIAL IVP STA ×2 (14:01→16:28)
[2018-05-12] MEDS ORDERED: cefTRIAXone 1 GM in SODIUM CHLORIDE 0.9% MINIBAG 100 ML IV STA (15:22)
[2018-05-12] MEDS ORDERED: diltiaZEM CD 120 MG CAPSULE PO STA (15:33)
[2018-05-12] MEDS ORDERED: DIGOXIN 500 MCG/2 ML AMP IVP STA (15:36)
[2018-05-12] MEDS ORDERED: oxyCODONE 5 MG TABLET PO STA (16:35)
[2018-05-12 17:40] VITALS: BP 118/86
== END 2018-05-12 17:40 | disposition home or self-care (01) ==
LOC: ED 11:26
DX: L03.031 Cellulitis of right toe (principal); I48.92 Unspecified atrial flutter; J94.2 Hemothorax; I10 Essential (primary) hypertension; Z98.890 Other specified postprocedural states; Z79.899 Other long term (current) drug therapy
CPT/HCPCS: 36415; 71046; 80053; 83690; 83880; 84484; 85025; 93005; 96374; 96375; 96376; 99285; A9270; J0153

== ENCOUNTER 2018-05-18 13:01 | Emergency (ER) | payer MEDICARE ==
[2018-05-18 13:14] VITALS: BP 110/63
== END 2018-05-18 15:11 | disposition left against medical advice (07) ==
LOC: ED 13:01
DX: Z53.21 Procedure and treatment not carried out due to patient leaving prior to being seen by health care provider (principal)

== ENCOUNTER 2018-05-19 13:38 | Outpatient (CLI) | payer MEDICARE ==
--- NOTE | 2018-05-19 14:55 | XRAY Report ---
Procedure Date: 05/19/2018 Accession Number: [id number] / [id number] Procedure: XR - Foot 2 View RT CPT Code: FULL RESULT: EXAM: Foot 2 View RT DATE: 05/19/2018 2:39 PM CLINICAL HISTORY: CELLULITIS,TOE,RIGHT COMPARISON: None. TECHNIQUE: 3 views. FINDINGS: Bones: Normal. No fractures or bone lesions. Joints: There are no subluxations. Soft Tissues: Soft tissue swelling calcification is seen in the region of the first right metatarsophalangeal joint. No soft tissue gas is identified. IMPRESSION: No fractures and no soft tissue gas. Calcification and soft tissue swelling about the first metatarsophalangeal joint as described. RADIA
== END 2018-05-19 13:39 | disposition home or self-care (01) ==
LOC: DI 13:38
PROVIDERS: ATTEND Physician Assistant Medical
DX: L03.031 Cellulitis of right toe (principal)

== ENCOUNTER 2018-05-20 13:39 | Outpatient (CLI) | payer MEDICARE ==
[2018-05-20 14:49] LABS: CALCIUM 9.2 mg/dL (8.5-10.3); CREATININE 1.6 mg/dL (0.6-1.2)
== END 2018-05-20 13:40 | disposition home or self-care (01) ==
LOC: LAB 13:39
PROVIDERS: ATTEND Physician Assistant Medical
DX: N18.3 Chronic kidney disease, stage 3 (moderate) (principal)
CPT/HCPCS: 36415; 80048

== ENCOUNTER 2018-05-26 08:00 | Outpatient (CLI) | payer MEDICARE | END 2018-05-26 08:01 | disposition home or self-care (01) | LOC: LAB.R 08:00 | PROVIDERS: ATTEND Internal Medicine | DX: L03.031 Cellulitis of right toe (principal) | CPT/HCPCS: 87070; 87205 ==

== ENCOUNTER 2018-05-31 10:58 | Emergency (ER) | payer MEDICARE ==
[2018-05-31 11:25] VITALS: BP 101/50
== END 2018-05-31 13:01 | disposition left against medical advice (07) ==
LOC: ED 10:58
DX: Z53.21 Procedure and treatment not carried out due to patient leaving prior to being seen by health care provider (principal)
CPT/HCPCS: 80053; 83690; 83735; 84100; 85025

== ENCOUNTER 2018-07-06 08:22 | Inpatient (IN) | payer MEDICARE ==
--- NOTE | 2018-07-06 08:50 | ED Physician Documentation ---
PD HPI NVD - Stated complaint Stated Complaint: WEAKNESS - Chief complaint Chief Complaint: Abd Pain - History obtained from History obtained from: Patient - History of Present Illness Timing - onset: How many months ago (2) Timing - duration: Months (2) Timing - details: Abrupt onset (after surgical procedures - had aspiration and choking with PO intake due to vocal cord paralysis.) Associated symptoms: Loss of appetite, Weight loss (for the past 2 months, since chest surgery, with 30 lb loss.). 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 He is not getting any chemotherapy. He is supposed to be evaluated by general surgery tomorrow for possible feeding tube placement) Review of Systems Constitutional: reports: Fatigue, Weight Loss. denies: Fever, Myalgias Nose: denies: Rhinorrhea / runny nose, Congestion Throat: denies: Sore throat Cardiac: denies: Chest pain / pressure, Palpitations Respiratory: denies: Dyspnea, Cough GI: reports: Other (coughing and choking with oral intake attempts/food.). denies: Abdominal Pain, Nausea, Vomiting, Diarrhea Skin: denies: Rash, Lesions Neurologic: reports: Generalized weakness, Headache. 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 : Benign prostate hypertrophy HEENT: Chronic hearing loss Psych: None Musculoskeletal: Osteoarthritis Derm: None - Past Surgical History Past Surgical History: Yes General: Cholecystectomy, Other Cardiovascular: Lobectomy - Present Medications Home Medications: Ambulatory Orders Medication Instructions Recorded Confirmed Finasteride 5 mg PO DAILY 09/11/13 07/06/18 Albuterol Sulfate [Proair 1 - 2 puffs INH Q4H PRN 02/17/18 07/06/18 Respiclick] Multivitamin [Theragran] 1 tab PO DAILY 02/17/18 07/06/18 Apixaban [Eliquis] 2.5 mg PO BID #30 tablet 05/12/18 07/06/18 oxyCODONE [Roxicodone] 0.5 - 1 tab PO Q6HR PRN 06/22/18 07/06/18 Acetaminophen 500 - 1,000 mg PO TID PRN 07/06/18 07/06/18 Metoprolol Succinate [Metoprolol 100 mg PO DAILY 07/06/18 07/06/18 Succinate] diphenhydrAMINE [Benadryl] 25 - 50 mg PO QPM PRN 07/06/18 07/06/18 - Allergies Allergies/Adverse Reactions: Allergies Allergy/AdvReac Type Severity Reaction Status Date / Time No Known Drug Allergies Allergy Verified 07/06/18 08:35 - Social History Does the pt smoke?: No Smoking Status: Never smoker Does the pt drink ETOH?: Yes Does the pt have substance abuse?: No - Immunizations Immunizations are current?: Yes - POLST Patient has POLST: No POLST Status: DNR PD ED PE NORMAL - Vitals Vital signs reviewed: Yes - General General: Alert and oriented X 3, No acute distress, Well developed/nourished - HEENT HEENT: Pharynx benign, Other (hard of hearing; with hearing aides. ). No: Moist mucous membranes - Neck Neck: Supple, no meningeal sign, No adenopathy, No JVD - Cardiac Cardiac: RRR, No rub, Other (1/6 murmur left chest) - Respiratory Respiratory: Clear bilaterally - Abdomen Abdomen: Normal bowel sounds, Soft, Non tender, Non distended - Male Male : Deferred - Rectal Rectal: Deferred - Back Back: No CVA TTP - Derm Derm: Normal color, Warm and dry, Other (frail and dry skin with tenting c/w dehydration) - Extremities Extremities: No deformity, No tenderness to palpate, Normal ROM s pain, No edema - Neuro Neuro: Alert and oriented X 3, No motor deficit, Normal speech Eye Opening: Spontaneous Motor: Obeys Commands Verbal: Oriented GCS Score: 15 Results - Vitals Vitals: Vital Signs - 24 hr 07/06/18 08:30 Temperature 36 C L Heart Rate 100 Respiratory 20 Rate Blood Pressure 121/97 H O2 Saturation 95 Oxygen O2 Source Room air - Labs Labs: Laboratory Tests 07/06/18 07/06/18 07/06/18 09:20 09:20 09:20 WBC 15.2 H RBC 4.74 Hgb 15.5 Hct 45.5 MCV 95.9 H MCH 32.6 H MCHC 34.0 RDW 13.9 Plt Count 241 MPV 10.9 Neut # (Auto) 13.5 H Lymph # (Auto) 0.9 L [place] # (Auto) 0.8 Eos # (Auto) 0.0 Baso # (Auto) 0.0 Absolute Nucleated RBC 0.00 Nucleated RBC % 0.0 PT 18.8 H INR 1.7 H APTT 33.5 H Sodium 143 Potassium 4.9 Chloride 107 Carbon Dioxide 21 Anion Gap 15.0 H BUN 64 H Creatinine 2.2 H Estimated GFR (MDRD) 29 L Glucose 182 H Calcium 9.6 Magnesium 2.3 Total Bilirubin 1.1 H AST 23 ALT 21 Alkaline Phosphatase 73 Total Protein 7.2 Albumin 4.0 Globulin 3.2 Albumin/Globulin Ratio 1.3 Lipase 41 Last Dose Date Last Dose Time Digoxin 07/06/18 09:20 WBC RBC Hgb Hct MCV MCH MCHC RDW Plt Count MPV Neut # (Auto) Lymph # (Auto) [place] # (Auto) Eos # (Auto) Baso # (Auto) Absolute Nucleated RBC Nucleated RBC % PT INR APTT Sodium Potassium Chloride Carbon Dioxide Anion Gap BUN Creatinine Estimated GFR (MDRD) Glucose Calcium Magnesium Total Bilirubin AST ALT Alkaline Phosphatase Total Protein Albumin Globulin Albumin/Globulin Ratio Lipase Last Dose Date Unknown Last Dose Time Unknown Digoxin < 0.2 PD MEDICAL DECISION MAKING - ED course Complexity details: reviewed results (His creatinine is elevated over baseline. His electrolytes are okay. Clinically does appear significantly dehydrated. We are will give him IV fluids as well as acid reduction medicine presume it has some element of gastritis given the prolonged poor intake. His hemoglobin is lower than prior from 2 years ago. There is no report of blood or melena in his stool. He had had surgery 2 months ago. We can try to get comparison blood tests from [facility] to see a more recent blood count.), re-evaluated patient, considered differential, d/w patient, d/w residential solar consultant (I talked with the surgeon on-call as well as the hospitalist in they are in agreement that we can treat the patient best with continued hydration and improvement of his renal insufficiency. He is on oral anticoagulant that is short acting so we can hold that. He has not had his dose yet today so we should have improvement into tomorrow. At that point we can have the surgeon place a feeding tube for continued hydration and nutrition. The patient does require significant rehydration given his elevated creatinine and clinical signs of dry skin and poor hydration.) - Sepsis Event Vital Signs: Vital Signs - 24 hr 07/06/18 08:30 Temperature 36 C L Heart Rate 100 Respiratory 20 Rate Blood Pressure 121/97 H O2 Saturation 95 Oxygen O2 Source Room air Departure - Departure Disposition: 66 [facility] DC/Xfer Clinical Impression: Nutritional deficiency, Dehydration, Achalasia, Acute renal insufficiency Condition: Stable Record reviewed to determine appropriate education?: Yes Discharge Date/Time: 07/06/18 13:51
[2018-07-06] MEDS ORDERED: SODIUM CHLORIDE 0.9% 1,000 ML IV ONE ×2 (09:04→09:06)
[2018-07-06] MEDS ORDERED: ONDANSETRON 4 MG/2 ML VIAL IVP STA (09:05)
[2018-07-06] MEDS ORDERED: FAMOTIDINE 20 MG/50 ML 50 ML IV ONE (09:05)
[2018-07-06 09:28] LABS: BASOPHILS % (AUTO) 0.2 %; EOSINOPHILS % (AUTO) 0.2 %; HGB - HEMOGLOBIN 15.5 g/dL (14.0-18.0); LYMPHOCYTES # (AUTO) 0.9 10^3/uL (1.5-3.5); LYMPHOCYTES % (AUTO) 5.8 %; MEAN CORPUSCULAR HEMOGLOBIN 32.6 pg (27.0-31.0); MEAN CORPUSCULAR VOLUME 95.9 fL (80.0-94.0); MEAN PLATELET VOLUME 10.9 fL (7.4-11.4); MONOCYTES # (AUTO) 0.8 10^3/uL (0.0-1.0); MONOCYTES % (AUTO) 5.2 %; NEUTROPHILS # (AUTO) 13.5 10^3/uL (1.5-6.6); NEUTROPHILS % (AUTO) 88.6 %; PLT - PLATELET COUNT 241 10^3/uL (130-450); RED BLOOD COUNT 4.74 10^6/uL (4.70-6.10); RED CELL DISTRIBUTION WIDTH 13.9 % (12.0-15.0); WHITE BLOOD COUNT 15.2 x10^3/uL (4.8-10.8)
[2018-07-06 09:35] LABS: INR 1.7 (0.8-1.2); PT - PROTHROMBIN TIME 18.8 secs (9.9-12.6)
[2018-07-06 09:41] LABS: ALBUMIN/GLOBULIN RATIO 1.3 (1.0-2.2); BILIRUBIN,TOTAL 1.1 mg/dL (0.2-1.0); CALCIUM 9.6 mg/dL (8.5-10.3); CREATININE 2.2 mg/dL (0.6-1.2); MAGNESIUM 2.3 mg/dL (1.7-2.8); TOTAL PROTEIN 7.2 g/dL (6.7-8.2)
[2018-07-06 09:52] LABS: DIGOXIN < 0.2 ng/mL
--- NOTE | 2018-07-06 10:29 | XRAY Report ---
Reason: cough and dyspnea Procedure Date: 07/06/2018 Accession Number: [id number] / [id number] Procedure: XR - Chest 2 View X-Ray CPT Code: 95426 FULL RESULT: EXAM: CHEST RADIOGRAPHY EXAM DATE: 07/06/2018 10:15 AM. CLINICAL HISTORY: Cough and dyspnea. Vocal cord paralysis. COMPARISON: 05/12/2018 TECHNIQUE: 2 views. FINDINGS: Lungs/Pleura: Volume loss left upper lobe with a brachial deviation to the lower and mediastinal shift to the left. Right lung clear. No pleural effusion or pneumothorax. Mediastinum: Heart and mediastinal contours are unremarkable. Dense mitral annular calcification. Other: Bony degenerative changes commensurate with age. Surgical clips upper abdomen IMPRESSION: Postsurgical change left upper lobe with volume loss and mediastinal shift to the left. Dense mitral annular calcification. No acute findings. RADIA
[2018-07-06] MEDS ORDERED: ONDANSETRON 4 MG/2 ML VIAL IVP PRN (12:53)
[2018-07-06 13:31] LABS: GLUCOSE, URINE (UA) NEGATIVE (NEGATIVE); KETONES,URINE (UA) TRACE mg/dL (NEGATIVE); LEUKOCYTE ESTERASE, URINE NEGATIVE (NEGATIVE); NITRITE,URINE NEGATIVE (NEGATIVE); OCCULT BLOOD,URINE NEGATIVE (NEGATIVE); PROTEIN,URINE 30 mg/dL (NEGATIVE); UROBILINOGEN,URINE 0.2 (NORMAL) E.U./dL (NORMAL)
[2018-07-06 13:32] LABS: CLARITY,URINE CLEAR (CLEAR)
[2018-07-06 13:37] LABS: BILIRUBIN,URINE NEGATIVE (NEGATIVE); ICTOTEST,URINE NEGATIVE
[2018-07-06 13:48] LABS: BACTERIA,URINE None Seen /HPF (None Seen); RBC,URINE 0-5 /HPF (0-5); SQUAMOUS EPITHELIAL CELL,UR RARE Squamous (<= Few)
[2018-07-06 13:49] LABS: CASTS, URINE 0-2 Fine Granular /LPF
[2018-07-06] MEDS ORDERED: ALBUTEROL NEB 2.5 MG/3 ML INH PRN (13:56)
--- NOTE | 2018-07-06 13:57 | HISTORY & PHYSICAL EXAMINATION ---
Chief Complaint - Chief Complaint Chief Complaint: dysphagia History of Present Illness - Admitted From Admitted From:: ER - History of Present Illness HPI Comment/Other: Mr. Sánchez is 82-yrs-old male with a H significance for lung cancer, status post of left lobectomy on May,, HTN, A flutter with Eliquis, BPH, osteoarthritis, who present ER for complaint of aspiration, choking with PO intake. Pt report after surgical procedure, he developed easy aspiration and choking with PO intake. He is supposed to be evaluated by general surgery tomorrow for possible feeding tube placement, but pt finally present our ER for possible feeding tube placement. He had left upper lobectomy for lung NSCLC cancer on May 2018 in [facility]. He is not getting any chemotherapy. he report he continue to have cough. he report he has been loss of appetite, Weight loss of 30 lb in the past 2 months since chest surgery. He report he last took Eliquis on last night around 6pm. He denies chest pain, hemoptysis, abdominal pain, headache, fever, chill. History - Past Medical History Cardiovascular: reports: Hypertension, Atrial flutter Respiratory: reports: Other Neuro: reports: None Endocrine/Autoimmune: reports: None GI: reports: Hiatal hernia RETIREMENT OFFICER: reports: None : reports: Benign prostate hypertrophy HEENT: reports: Chronic hearing loss Psych: reports: None Musculoskeletal: reports: Osteoarthritis Derm: reports: None MRSA Hx?: No - Past Surgical History General: reports: Cholecystectomy, Other Cardiovascular: reports: Lobectomy - Family & Social History Family History Comment/Other: Both his mother and father at the age of 92, of old age. He denies a history of hypertension, cancer, heart disease, thyroid disease, etc. He had 7 siblings. He is the youngest. They are all gone. He has 5 children. Again he denies a history of hypertension, cancer, heart disease or thyroid disease in them. He feels they're all really healthy Social History Notes: He was born [place]. 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 He was to his first for 47 years and she in 2000. He was to his second and she in 2005. He moved to [facility] in 1997 to be close to one of his daughter who was in the [place]. He lived at the apartments at [facility] with his first until she . His second is a nurse who worked in [place] before her . He moved in with his daughter a little over a year ago because he needs help. But he still independent with regards to dress himself, feeding himself, and doesn' t use a walker. He started smoking at the age of 8, and quit in 1977 of one pack per day. He never had a problem with alcohol abuse. And he never did recreational substance abuse. - Substance History Use: Uses substance without health or social issues: NONE - POLST Patient has POLST: No POLST Status: DNR Meds/Allgy - Home Medications Home Medications: Ambulatory Orders Medication Instructions Recorded Confirmed Finasteride 5 mg PO DAILY 09/11/13 07/06/18 Albuterol Sulfate [Proair 1 - 2 puffs INH Q4H PRN 02/17/18 07/06/18 Respiclick] Multivitamin [Theragran] 1 tab PO DAILY 02/17/18 07/06/18 Apixaban [Eliquis] 2.5 mg PO BID #30 tablet 05/12/18 07/06/18 oxyCODONE [Roxicodone] 0.5 - 1 tab PO Q6HR PRN 06/22/18 07/06/18 Acetaminophen 500 - 1,000 mg PO TID PRN 07/06/18 07/06/18 Metoprolol Succinate [Metoprolol 100 mg PO DAILY 07/06/18 07/06/18 Succinate] diphenhydrAMINE [Benadryl] 25 - 50 mg PO QPM PRN 07/06/18 07/06/18 - Allergies Allergies/Adverse Reactions: Allergies Allergy/AdvReac Type Severity Reaction Status Date / Time No Known Drug Allergies Allergy Verified 07/06/18 08:35 Review of Systems - Constitutional Constitutional: reports: Fatigue, Poor appetite. denies: Fever, Chills, Malaise , Weakness, Diaphoresis, Night sweats - Eyes Eyes: denies: Pain, Irritation, Amaurosis, Blurred vision, Spots in vision, Field loss, Vision loss, Dipolpia - Ears, Nose & Throat Ears, Nose & Throat: denies: Ear pain, Hearing loss, Hearing aids, Tinnitus, Vertigo, Nasal pain, Nasal discharge, Nosebleeds, Nasal obstruction, Nasal congestion, Postnasal drainage, Dentures, Sore throat, Hoarseness, Mouth lesions - Cardiovascular Cariovascular: denies: Irregular heart rate, Palpitations, Chest pain, Edema, Lightheadedness, Syncope, Exertional dyspnea, Decr. exercise tolerance - Respiratory Respiratory: reports: Cough. denies: Sputum production, Wheezing, Snoring, Hemoptysis, Orthopnea, SOB at rest, SOB with exertion - Gastrointestinal Gastrointestinal: reports: Poor appetite. denies: Abdominal pain, Abdominal distention, Constipation, Diarrhea, Change in bowel habits, Rectal bleeding, Black stools, Bloody stools, Nausea, Vomiting, Bile emesis, Dane blood emesis, Coffee grounds emesis, Reflux/heartburn, Bloating - Genitourinary Genitourinary: denies: Dysuria, Frequency, Urgency, Hematuria, Incontinence, Flank pain, Nocturia, Urethral discharge - Musculoskeletal Musculoskeletal: denies: Muscle pain, Back pain, Muscle aches, Stiffness, Limited range of motion, Muscle weakness, Gout, Joint pain - Integumentary Integumentary: denies: Rash, Pruritis, Lesions, Dryness, Lumps, Acne, Pigment changes, Nail changes - Neurological Neurological: denies: General weakness, Focal weakness, Headache, Dizziness, Numbness, Memory problems, Pre-existing deficit, Abnormal gait, Seizures, Incoordination, Slurred speech - Psychiatric Psychiatric: denies: Depression, Anxiety, Suicidal, Delusions, Hallucinations, Homicidal - Endocrine Endocrine: denies: Polyuria, Polydypsia, Polyphagia, Intolerance to cold - Hematologic/Lymphatic Hematologic/Lymphatic: denies: Anemia, Bruising, Petechiae, Blood clots, Lymphadenopathy, Bleeding tendencies Exam - Vital Signs Reviewed Vital Signs: Yes Vital Signs: Vital Signs x48h Pulse Resp BP Pulse Ox 07/06/18 13:41 86 16 126/82 H 99 - Physical Exam General Appearance: positive: No acute distress, Alert. negative: Lethargic Eyes Bilateral: positive: Normal inspection, PERRL, No lid inflammation, Conjunctivae nml ENT: positive: ENT inspection nml, Pharynx nml, No signs of dehydration. negative: Purulent nasal drainage, Pharyngeal erythema, Oral lesions Neck: positive: Thyroid nml, No JVD. negative: Thyromegaly, Lymphadenopathy (R) , Lymphadenopathy (L), Stiff neck Respiratory: positive: Chest non-tender, No respiratory distress. negative: Wheezes, Rales, Rhonchi Cardiovascular: positive: Regular rate & rhythm, No murmur, No gallop. negative : Irregularly irregular, Extrasystoles, Tachycardia, Bradycardia, JVD present, Systolic murmur, Diastolic murmur Peripheral Pulses: positive: 2+ Abdomen: positive: Non-tender, No organomegaly, Nml bowel sounds, No distention. negative: Tenderness, Guarding, Rebound Back: positive: Nml inspection. negative: CVA tenderness (R), CVA tenderness (L ) Skin: positive: Color nml, No rash, Warm, Dry. negative: Cyanosis, Diaphoresis , Pallor Extremities: positive: Non-tender, Full ROM, Nml appearance. negative: Calf tenderness, Joint swelling, Namita's sign/cords Neurologic/Psychiatric: positive: Oriented x3, Motor nml, Sensation nml, Mood/ affect nml. negative: Weakness, Sensory loss, Facial droop, Slurred/abnml speech, Depressed mood/affect Conclusion/Plan - Problem List (1) Dysphagia causing pulmonary aspiration with swallowing Conclusion/Plan: consult with surgeon. because pt took Eliquis on 07/06/18, plan to have PEG on 07/08/18 NPO IVF with D5 1/2 NS (2) Lung cancer Conclusion/Plan: discuss with pt, advise pt follow up his oncologist at out-pt will image study of esophusgraph, CT of chest, will followup continue support, pain control (3) Atrial flutter Conclusion/Plan: HR is stable, continue beta-treasure hold Eliquis now for PEG tele and vital monitor (4) HTN (hypertension) Conclusion/Plan: stable, continue beta-block (5) Osteoarthritis Conclusion/Plan: pain control with IV Morphine, pt is NPO now (6) BPH (benign prostatic hyperplasia) Conclusion/Plan: will resume home meds after PEG procedure, pt is NPO now (7) Acute on chronic renal insufficiency Conclusion/Plan: creatinine 2.2 now from previous 1.7 start with IVF hold nephrotoxic agents lab monitor (8) DVT prophylaxis Conclusion/Plan: SCD now, will resume Eliquis after procedure (9) Full code status Conclusion/Plan: pt request full code status - Lab Results Fish Bones: 07/07/18 04:45 07/07/18 04:45 Core Measures - Anticipated LOS I expect patient to be DC'd or transferred within 96 hours.: Yes - DVT/VTE - Prophylaxis VTE/DVT Device ordered at admit?: Yes VTE/DVT Prophylaxis med ordered at admit?: No Not Ordered - Medical Reason: Contraindicated
--- NOTE | 2018-07-06 14:53 | CT Report ---
Reason: cough, hx of lung cancer Procedure Date: 07/06/2018 Accession Number: [id number] / [id number] Procedure: CT - Chest W/O CPT Code: FULL RESULT: EXAM: CT CHEST EXAM DATE: 07/06/2018 02:28 PM. CLINICAL HISTORY: Cough, history of lung cancer. COMPARISONS: Chest with contrast 12/24/2017. TECHNIQUE: Routine helical CT imaging was performed through the chest. IV contrast: None. Reconstructions: Coronal and sagittal. In accordance with CT protocol optimization, one or more of the following dose reduction techniques were utilized for this exam: automated exposure control, adjustment of mA and/or KV based on patient size, or use of iterative reconstructive technique. FINDINGS: Lungs/Pleura: Emphysematous changes. Interval resection of the apical segment left upper lobe. No recurrent tumor in this region. However, interval increase in a dominant spiculated groundglass opacity posterior segment right upper lobe axial image 28 series 4, barely visible previously. Multiple new additional faint patchy groundglass opacities over a 3 x 5 x 4 cm region also in the posterior segment right upper lobe. Stable 2 x 4 mm subpleural density apical segment right upper lobe image 19 series 4. No effusion, vascular congestion nor pneumothorax. Mediastinum: Marked interval increase in a subcarinal lymph node, which is now necrotic measuring 22 x 17 x 25 mm, axial image 32 series 3, previously measuring 15 x 6 x 5 mm. Heart remains of normal caliber without significant pericardial fluid. Extensive mitral annulus calcifications. Stable moderate hiatal hernia. Thoracic aorta is normal caliber. Bones: Further wedging of the T7 vertebral body now moderate to marked in degree. Stable 3 mm retropulsed bone fragment without significant bony central spinal canal compromise. No bony metastatic disease. Visualized Abdomen: Cholecystectomy. 7 mm nonobstructing right renal stone. Moderate left renal atrophy. 1 cm exophytic hyperdensity off the left renal cortex, indeterminate as regards to hemorrhagic cyst versus small renal cell carcinoma. Several small hepatic hypodensities unchanged. Other: None. IMPRESSION: 1. Interval increase in number and caliber of groundglass opacities with a dominant spiculated lesion posterior segment right upper lobe. Indeterminate as to whether this represents acute on chronic lung disease versus multifocal primary, metastatic disease and/or a combination thereof. 2. New large necrotic subcarinal lymph node. 3. Further wedging T7 now moderate to marked in degree. 4. Right renal lithiasis. 5. Moderate left renal atrophy. 6. Stable small hepatic hypodensities. RADIA
[2018-07-06] MEDS: DEXTROSE 5%-0.45% NACL 1,000 ML IV SCH (15:52)
--- NOTE | 2018-07-06 15:52 | XRAY Report ---
Reason: dysphagia Procedure Date: 07/06/2018 Accession Number: [id number] / [id number] Procedure: FL - Esophogram CPT Code: FULL RESULT: EXAM: BARIUM ESOPHAGRAM EXAM DATE: 07/06/2018 02:59 PM. CLINICAL HISTORY: Dysphagia. Weight loss COMPARISONS: Chest x-ray 07/06/2018. TECHNIQUE: Routine double contrast esophagram. Fluoroscopy Time: 3 minutes 40 seconds. Number of Images: 12. FINDINGS: Swallowing Mechanism: Prolonged oral phase. There is aspiration of thin barium into the trachea. Esophageal Motility: Presbyesophagus with multiple tertiary contractions. Mucosa: Not evaluated Gastroesophageal Junction: No severe stricture. Relative narrowing at the GE junction but a 13 mm barium tablet passes with repeated swallows of thin barium. Other: Left vocal cord paralysis. Comments: Machine malfunction during the examination limited image capture. IMPRESSION: 1. Aspiration into the trachea with thin barium. 2. Presbyesophagus 3. Narrowing at the gastroesophageal junction but ultimately a 13 mm barium tablet will pass with repeated swallows of liquid. RADIA
[2018-07-06] MEDS: SODIUM CHLORIDE FLUSH 0.9% 10 ML SYRINGE IVP SCH (15:53)
[2018-07-06] MEDS ORDERED: MORPHINE 2 MG/ML CARPUJECT IVP PRN (16:38)
[2018-07-06] MEDS ORDERED: METOPROLOL 5 MG/5 ML VIAL IVP SCH (18:00)
[2018-07-06] MEDS ORDERED: HEPARIN 5,000 UNIT/ML VIAL SUBQ SCH (21:00)
[2018-07-07] MEDS: METOPROLOL 5 MG/5 ML VIAL IVP SCH ×4 (00:55→19:22)
[2018-07-07] MEDS: SODIUM CHLORIDE FLUSH 0.9% 10 ML SYRINGE IVP SCH ×3 (01:23→16:26)
[2018-07-07] MEDS: DEXTROSE 5%-0.45% NACL 1,000 ML IV SCH ×3 (02:00→22:00)
[2018-07-07 05:23] LABS: ALBUMIN/GLOBULIN RATIO 1.3 (1.0-2.2); BILIRUBIN,TOTAL 0.7 mg/dL (0.2-1.0); CALCIUM 8.5 mg/dL (8.5-10.3); CREATININE 1.5 mg/dL (0.6-1.2); TOTAL PROTEIN 5.4 g/dL (6.7-8.2)
[2018-07-07 05:29] LABS: BASOPHILS % (AUTO) 0.3 %; EOSINOPHILS % (AUTO) 0.4 %; HGB - HEMOGLOBIN 12.4 g/dL (14.0-18.0); LYMPHOCYTES # (AUTO) 0.8 10^3/uL (1.5-3.5); LYMPHOCYTES % (AUTO) 8.3 %; MEAN CORPUSCULAR HGB CONC 34.3 g/dL (32.0-36.0); MEAN CORPUSCULAR VOLUME 96.2 fL (80.0-94.0); MEAN PLATELET VOLUME 10.9 fL (7.4-11.4); MONOCYTES # (AUTO) 0.7 10^3/uL (0.0-1.0); MONOCYTES % (AUTO) 6.7 %; NEUTROPHILS # (AUTO) 8.6 10^3/uL (1.5-6.6); NEUTROPHILS % (AUTO) 84.3 %; PLT - PLATELET COUNT 164 10^3/uL (130-450); RED BLOOD COUNT 3.76 10^6/uL (4.70-6.10); RED CELL DISTRIBUTION WIDTH 13.6 % (12.0-15.0); WHITE BLOOD COUNT 10.2 x10^3/uL (4.8-10.8)
[2018-07-07] MEDS: PANTOPRAZOLE 40 MG VIAL IVP SCH (06:43)
[2018-07-07] MEDS: SODIUM CHLORIDE FLUSH 0.9% 10 ML SYRINGE IVP PRN (06:54)
[2018-07-07 07:39] LABS: INR 1.5 (0.8-1.2); PT - PROTHROMBIN TIME 16.5 secs (9.9-12.6)
[2018-07-07] MEDS: POLYETHYLENE GLYCOL 3350 17 GM PACKET PO SCH (11:04)
--- NOTE | 2018-07-07 11:35 | CONSULTATION NOTE ---
DATE OF SERVICE: 07/07/2018 Physician: Mo Rocha MD REASON FOR VISIT: The patient is 82 years old. He came into the emergency room yesterday, dehydrate d and unable to take in p.o. fluids or solid food because he is aspirating. Significant history is the patient is 2 months post lobectomy for lung cancer. He was told that he w as free of disease. However, we have done a CT scan here today, looking at his chest, and he has wid espread metastatic disease with necrotic subcarinal nodes and extensive cancer. His esophagus appear s to be clear. We did a Gastrografin swallow to eliminate the possibility of esophageal stricture, s o that we could most probably safely perform a PEG feeding tube, which is what the family and the pat ient desire, so that is the reason I am seeing the patient in consultation. I have explained in grea t detail to especially the daughter, the dire prognosis of her father, and that I expect him to only live a few months. She understands clearly. They would still like to proceed with a PEG feeding tub e. I have explained the details of the procedure to both the patient and the daughter. The patient has had prior upper abdominal surgery and I have explained that that may make complications a lot mor e likely for the insertion of a PEG tube, which is a blind procedure in part. They understand fully. There is a risk of bowel injury, bleeding, etc. The patient is on Eliquis, which he stopped yester day. His INR today is 1.5. We will proceed with a PEG feeding tube tomorrow. PHYSICAL EXAMINATION: The patient is very thin, cachectic. He has a midline upper abdominal incisio n from previous hernia repair. I do not feel any abdominal masses. The patient understands and he will be undergoing a PEG feeding tube placement tomorrow. I have also discussed this with a dietitian who will help with his tube feeding. TD: 07/07/2018 09:29
[2018-07-08] MEDS: METOPROLOL 5 MG/5 ML VIAL IVP SCH ×4 (00:10→18:00)
[2018-07-08] MEDS: SODIUM CHLORIDE FLUSH 0.9% 10 ML SYRINGE IVP SCH ×4 (00:36→16:22)
[2018-07-08 05:11] LABS: BASOPHILS % (AUTO) 0.3 %; EOSINOPHILS # (AUTO) 0.1 10^3/uL (0.0-0.7); HGB - HEMOGLOBIN 11.5 g/dL (14.0-18.0); LYMPHOCYTES % (AUTO) 13.5 %; MEAN CORPUSCULAR HEMOGLOBIN 34.2 pg (27.0-31.0); MEAN CORPUSCULAR HGB CONC 35.6 g/dL (32.0-36.0); MEAN CORPUSCULAR VOLUME 96.2 fL (80.0-94.0); MEAN PLATELET VOLUME 10.6 fL (7.4-11.4); MONOCYTES # (AUTO) 0.4 10^3/uL (0.0-1.0); MONOCYTES % (AUTO) 6.3 %; NEUTROPHILS # (AUTO) 5.6 10^3/uL (1.5-6.6); NEUTROPHILS % (AUTO) 78.9 %; PLT - PLATELET COUNT 137 10^3/uL (130-450); RED BLOOD COUNT 3.37 10^6/uL (4.70-6.10); RED CELL DISTRIBUTION WIDTH 13.5 % (12.0-15.0); WHITE BLOOD COUNT 7.1 x10^3/uL (4.8-10.8)
[2018-07-08 05:20] LABS: ALBUMIN 2.7 g/dL (3.2-5.5); ALBUMIN/GLOBULIN RATIO 1.2 (1.0-2.2); BILIRUBIN,TOTAL 0.8 mg/dL (0.2-1.0); CALCIUM 8.3 mg/dL (8.5-10.3); CREATININE 1.3 mg/dL (0.6-1.2)
[2018-07-08 05:48] LABS: INR 1.4 (0.8-1.2); PT - PROTHROMBIN TIME 15.4 secs (9.9-12.6)
[2018-07-08] MEDS: POLYETHYLENE GLYCOL 3350 17 GM PACKET PO SCH (07:32)
[2018-07-08] MEDS: PANTOPRAZOLE 40 MG VIAL IVP SCH (07:43)
[2018-07-08] MEDS: SODIUM CHLORIDE FLUSH 0.9% 10 ML SYRINGE IVP PRN (07:43)
[2018-07-08] MEDS: DEXTROSE 5%-0.45% NACL 1,000 ML IV SCH (08:24)
--- NOTE | 2018-07-08 10:20 | ANESTHESIA ---
Pre-Anesthesia VS, & Labs - Diagnosis Lung cancer, dysphagia - Procedure PEG tube placement Vital Signs: Temp Pulse Resp BP Pulse Ox 36.5 C 66 18 152/69 H 96 07/08/18 08:08 07/08/18 08:08 07/08/18 08:08 07/08/18 08:08 07/08/18 08:08 Height 5 ft 7 in Weight (kg) 57.6 kg Body Mass Index 19.8 - NPO >8 hours - Lab Results Fish Bones: 07/08/18 04:45 07/08/18 04:45 Home Medications and Allergies Home Medications: Ambulatory Orders Medication Instructions Recorded Confirmed Finasteride 5 mg PO DAILY 09/11/13 07/06/18 Albuterol Sulfate [Proair 1 - 2 puffs INH Q4H PRN 02/17/18 07/06/18 Respiclick] Multivitamin [Theragran] 1 tab PO DAILY 02/17/18 07/06/18 Apixaban [Eliquis] 2.5 mg PO BID #30 tablet 05/12/18 07/06/18 oxyCODONE [Roxicodone] 0.5 - 1 tab PO Q6HR PRN 06/22/18 07/06/18 Acetaminophen 500 - 1,000 mg PO TID PRN 07/06/18 07/06/18 Metoprolol Succinate [Metoprolol 100 mg PO DAILY 07/06/18 07/06/18 Succinate] diphenhydrAMINE [Benadryl] 25 - 50 mg PO QPM PRN 07/06/18 07/06/18 Allergies/Adverse Reactions: Allergies Allergy/AdvReac Type Severity Reaction Status Date / Time No Known Drug Allergies Allergy Verified 07/06/18 08:35 Anes History & Medical History - Anesthetic History Anesthesia Complications: reports: No previous complications Family history of Anesthesia Complications: Denies Family history of Malignant Hyperthermia: Denies - Medical History Cardiovascular: reports: Hypertension, Atrial flutter Pulmonary: reports: Other (Non-small cell lung cancer) Gastrointestinal: reports: Hiatal hernia, Other (dysphagia) Urinary: reports: Benign prostate hypertrophy Neuro: reports: None Musculoskeletal: reports: Osteoarthritis Endocrine/Autoimmune: reports: None Blood Disorders: reports: None Skin: reports: None Smoking Status: Former smoker Psychosocial: reports: No issues indicated - Surgical History General: Cholecystectomy, Other Cardiothoracic: Lobectomy Exam General: Alert, Oriented x3, Cooperative, No acute distress Dental: Dentures full Upper Mouth Openin Fingerbreadth Neck Mobility: Reduced Mallampati classification: II Thyromental Distance: less than 4 cm Respiratory: Lungs clear Cardiovascular: Normal S1, Normal S2 Cognitive Status: Within normal limits Plan Anesthesia Type: MAC Consent for Procedure(s) Verified and Reviewed: Yes Code Status: Attempt Resuscitation ASA classification: 3-Severe systemic disease Is this case an emergency?: No
[2018-07-08] MEDS ORDERED: LACTATED RINGERS 1,000 ML IV ONE (13:52)
[2018-07-08] MEDS ORDERED: fentaNYL 100 MCG/2 ML VIAL IVP ONE (14:30)
[2018-07-08] MEDS ORDERED: PROPOFOL 200 MG/20 ML VIAL IVP ONE (14:30)
[2018-07-08] MEDS ORDERED: ceFAZolin 1 GM VIAL IV ONE (14:30)
[2018-07-08] MEDS ORDERED: KETAMINE 500 MG/10 ML VIAL IVP ONE (14:30)
[2018-07-08] MEDS ORDERED: KETOROLAC 15 MG/ML VIAL IVP PRN (16:11)
--- NOTE | 2018-07-08 16:31 | PROVIDER PROGRESS NOTE ---
Subjective - Prog Note Date Prog Note Date: 07/08/18 - Subjective Pt reports feeling: Improved Subjective: pt and pt's daughter still requested for PEG. Pt had PEG this afternoon. Guest Service Representative was consulted, PEG feeding will start tomorrow per pt's daughter request. Pt's PCP Dr. Person recommend pt to be d/c tomorrow to [facility], he will be pt's hospice care provider. I discussed the d/c plan with pt and pt's daughter, they all agree this plan, and request to d/c tomorrow to [facility] for hospice care under of Dr. Person's care. Current Medications - Current Medications Current Medications: Active Medications Albuterol () 2.5 mg INH RTQ4H PRN PRN Reason: Wheezing Dextrose/Sodium Chloride (D5.45ns) 1,000 mls @ 100 mls/hr IV .Q10H [facility] Last Admin: 07/08/18 08:24 Dose: 100 mls/hr Ketorolac Tromethamine (Toradol Inj (15mg)) 15 mg IVP Q8HR PRN PRN Reason: PAIN Stop: 07/13/18 16:10 Metoprolol Tartrate (Lopressor Inj) 5 mg IVP Q6HR [facility] Last Admin: 07/08/18 12:37 Dose: 5 mg Morphine Sulfate (Morphine (Carpuject)) 2 mg IVP Q2HR PRN PRN Reason: PAIN Ondansetron HCl (Zofran Inj) 4 mg IVP Q6HR PRN PRN Reason: Nausea / Vomiting Last Admin: 07/08/18 16:22 Dose: 4 mg Pantoprazole Sodium (Protonix) 40 mg IVP QDAC [facility] Last Admin: 07/08/18 07:43 Dose: 40 mg Polyethylene Glycol (Miralax) 17 gm PO DAILY [facility] Last Admin: 07/08/18 07:32 Dose: Not Given Sodium Chloride (Normal Saline Flush 0.9%) 10 ml IVP PRN PRN PRN Reason: NEEDED PER PROVIDER ORDERS Last Admin: 07/08/18 07:43 Dose: 20 ml Sodium Chloride (Normal Saline Flush 0.9%) 10 ml IVP 0100,0900,1700 [facility] Last Admin: 07/08/18 16:22 Dose: 10 ml Finasteride 5 mg PO DAILY 09/11/13 Albuterol Sulfate [Proair Respiclick] 1 - 2 puffs INH Q4H PRN 02/17/18 Multivitamin [Theragran] 1 tab PO DAILY 02/17/18 oxyCODONE [Roxicodone] 0.5 - 1 tab PO Q6HR PRN 06/22/18 Acetaminophen 500 - 1,000 mg PO TID PRN 07/06/18 Metoprolol Succinate [Metoprolol Succinate] 100 mg PO DAILY 07/06/18 diphenhydrAMINE [Benadryl] 25 - 50 mg PO QPM PRN 07/06/18 Objective - Vital Signs/Intake & Output Reviewed Vital Signs: Yes Vital Signs: Vital Signs x48h Temp Pulse Pulse Resp BP BP Pulse Ox 07/08/18 15:27 36.7 C 51 L 16 112/47 L 94 07/08/18 14:56 36.7 C 61 18 145/56 H 95 07/08/18 14:32 36.7 C 61 18 118/51 L 93 07/08/18 13:08 54 L 132/74 H 07/08/18 12:49 56 L 141/67 H 07/08/18 12:41 36.6 C 58 L 18 136/68 H 93 07/08/18 12:37 131/62 H 07/08/18 11:15 95 16 Intake & Output: Intake & Output 07/05/18 07/06/18 07/07/18 07/08/18 23:59 23:59 23:59 23:59 Intake Total 1000 3100 1000 Output Total 200 1025 500 Balance 800 2075 500 - Objective General Appearance: positive: No acute distress, Alert. negative: Lethargic Eyes Bilateral: positive: Normal inspection, PERRL, No lid inflammation, Conjunctivae nml ENT: positive: ENT inspection nml, Pharynx nml, No signs of dehydration. negative: Purulent nasal drainage, Pharyngeal erythema, Oral lesions Neck: positive: Nml inspection, Thyroid nml, No JVD, Trachea midline. negative : Thyromegaly, Lymphadenopathy (R), Lymphadenopathy (L), Stiff neck, Swelling/ bruising, Tracheal deviation Respiratory: positive: Chest non-tender, No respiratory distress, Breath sounds nml. negative: Wheezes, Rales, Rhonchi Cardiovascular: positive: Regular rate & rhythm, No murmur, No gallop. negative : Irregularly irregular, Extrasystoles, Tachycardia, Bradycardia, JVD present, Systolic murmur, Diastolic murmur Peripheral Pulses: 2+ Radial (R), 2+ Radial (L), 2+ Dorsalis pedis (R), 2+ Dorsalis pedis (L) Abdomen: positive: Non-tender, No organomegaly, Nml bowel sounds, No distention. negative: Tenderness, Guarding, Rebound Back: positive: Nml inspection. negative: CVA tenderness (R), CVA tenderness (L ) Skin: positive: Color nml, No rash, Warm, Dry. negative: Cyanosis, Diaphoresis , Pallor Extremities: positive: Non-tender, Full ROM, Nml appearance. negative: Calf tenderness, Joint swelling, Namita's sign/cords Neurologic/Psychiatric: positive: Sensation nml, Mood/affect nml. negative: Weakness, Sensory loss, Facial droop, Slurred/abnml speech, Depressed mood/ affect - Lab Results Fish Bones: 07/08/18 04:45 07/08/18 04:45 Other Labs: Lab Results x24hrs 07/08/18 07/08/18 07/08/18 Range/Units 04:45 04:45 04:45 WBC 7.1 (4.8-10.8) x10^3/uL RBC 3.37 L (4.70-6.10) 10^6/uL Hgb 11.5 L (14.0-18.0) g/dL Hct 32.5 L (42.0-52.0) % MCV 96.2 H (80.0-94.0) fL MCH 34.2 H (27.0-31.0) pg MCHC 35.6 (32.0-36.0) g/dL RDW 13.5 (12.0-15.0) % Plt Count 137 (130-450) 10^3/uL MPV 10.6 (7.4-11.4) fL Neut # (Auto) 5.6 (1.5-6.6) 10^3/uL Lymph # (Auto) 1.0 L (1.5-3.5) 10^3/uL [place] # (Auto) 0.4 (0.0-1.0) 10^3/uL Eos # (Auto) 0.1 (0.0-0.7) 10^3/uL Baso # (Auto) 0.0 (0.0-0.1) 10^3/uL Absolute Nucleated RBC 0.00 x10^3/uL Nucleated RBC % 0.0 /100WBC PT 15.4 H (9.9-12.6) secs INR 1.4 H (0.8-1.2) Sodium 138 (135-145) mmol/L Potassium 3.5 (3.5-5.0) mmol/L Chloride 111 (101-111) mmol/L Carbon Dioxide 21 (21-32) mmol/L Anion Gap 6.0 (6-13) BUN 25 H (6-20) mg/dL Creatinine 1.3 H (0.6-1.2) mg/dL Estimated GFR (MDRD) 53 L (>89) Glucose 157 H (70-100) mg/dL Calcium 8.3 L (8.5-10.3) mg/dL Total Bilirubin 0.8 (0.2-1.0) mg/dL AST 18 (10-42) IU/L ALT 14 (10-60) IU/L Alkaline Phosphatase 49 (42-121) IU/L Total Protein 5.0 L (6.7-8.2) g/dL Albumin 2.7 L (3.2-5.5) g/dL Globulin 2.3 (2.1-4.2) g/dL Albumin/Globulin Ratio 1.2 (1.0-2.2) ABX Reporting Has patient been on IV antibiotics over the past 48 hours?: No Assessment/Plan - Problem List (1) Dysphagia causing pulmonary aspiration with swallowing Impression: Conclusion/Plan: pt has PEG now, will start feed tomorrow morning, per pt's daughter request consult with explosives engineer consult with surgeon. because pt took Eliquis on 07/06/18, plan to have PEG on 07/08/18 NPO IVF with D5 1/2 NS (2) Lung cancer Conclusion/Plan: discuss with pt, advise pt follow up his oncologist at out-pt will image study of esophusgraph, CT of chest, will followup continue support, pain control (3) Atrial flutter Conclusion/Plan: HR is stable, continue beta-treasure hold Eliquis now for PEG tele and vital monitor (4) HTN (hypertension) Conclusion/Plan: stable, continue beta-block (5) Osteoarthritis Conclusion/Plan: pain control with IV Morphine, pt is NPO now (6) BPH (benign prostatic hyperplasia) Conclusion/Plan: will resume home meds after PEG procedure, pt is NPO now (7) Acute on chronic renal insufficiency Conclusion/Plan: creatinine 2.2 now from previous 1.7 start with IVF hold nephrotoxic agents lab monitor (8) hospice care CT of chest on 07/06/18 reveals NSCLC metastatic to right lung family request hospice care and pt's PCP Dr. Person recommend hospice care to pt under his care, as pt's hospice care provider plan d/c tomorrow to [facility].
[2018-07-08] MEDS ORDERED: SODIUM CHLORIDE 0.9% 1,000 ML IV ONE ×3 (18:55→20:11)
[2018-07-08 19:56] LABS: BASOPHILS # (AUTO) 0.1 10^3/uL (0.0-0.1); BASOPHILS % (AUTO) 0.3 %; EOSINOPHILS % (AUTO) 0.3 %; HGB - HEMOGLOBIN 10.5 g/dL (14.0-18.0); LYMPHOCYTES # (AUTO) 2.1 10^3/uL (1.5-3.5); LYMPHOCYTES % (AUTO) 11.8 %; MEAN CORPUSCULAR HEMOGLOBIN 32.6 pg (27.0-31.0); MEAN CORPUSCULAR HGB CONC 33.3 g/dL (32.0-36.0); MEAN CORPUSCULAR VOLUME 97.9 fL (80.0-94.0); MEAN PLATELET VOLUME 10.7 fL (7.4-11.4); MONOCYTES # (AUTO) 1.1 10^3/uL (0.0-1.0); NEUTROPHILS # (AUTO) 14.4 10^3/uL (1.5-6.6); NEUTROPHILS % (AUTO) 81.6 %; PLT - PLATELET COUNT 197 10^3/uL (130-450); RED BLOOD COUNT 3.21 10^6/uL (4.70-6.10); RED CELL DISTRIBUTION WIDTH 13.8 % (12.0-15.0); WHITE BLOOD COUNT 17.6 x10^3/uL (4.8-10.8)
--- NOTE | 2018-07-08 19:57 | PROVIDER PROGRESS NOTE ---
Photograph Retoucher Note - Photograph Retoucher Note Photograph Retoucher Note: The patient was complaining of abdominal pain after PEG tube placed this afternoon, and he got Morphine, which did not adequately control pain. Toradol was ordered and given. RN called me to see patient after orders were given from Stevie CIRCUIT BREAKER SUPERVISOR due to low BP of 70 and lethargic patient. EKG, CXR, Abd XRay and labs were ordered. 1L of saline wide open infusing and orders to be transferred to ICU. Pt is cool, pale, in Trandelenburg, complains of shoulder pain. HR 70-90 irreg. Palp BP in radial artery is approx 90. HEENT: wearing a ventimask Neck: no JVD despite Trandelenburg position Chest: clear Heart: vertically displaced apex, 2/6 honking systolic murmur at apex. Abd: soft, tender in RUQ and R mid abdomen. PEG tube and clean bandage seen at mid-abdomen. Legs: no edema, diminished DP pulse Neuro: answers with slo mumbling speech. EKG: Afib, deep horizontal ST depressions and T wave inversions in leads II, III , AVF, V3-V6. New from last EKG in records. Labs: pending (cannot get blood or start a second iv). CXR: No acute findings Abd XRay: No acute findings I reviewed the EMR. A POLST was signed on 07/05/18 to be a DNR. Impression: Shock, likely due to global LV ischemia/acute NSTEMI and volume depletion. Plan: Change Code Status to DNR. No CVP line, no Levophed will be ordered, since Comfort Care was desired. as per POLST. Continue iv fluids. Lab draws will be attempted and problems treated for patient comfort. Supplemental O2 continue and Larios insertion. iv Ofirmev for pain meds for comfort. Stop Toradol as it is an NSAIA and could add to bleeding at new surgical site. Morphine iv for dyspnea and severe pain. I reached out to daughter and left her a message to update her on her father's condition.
--- NOTE | 2018-07-08 20:05 | XRAY Report ---
Reason: SOB Procedure Date: 07/08/2018 Accession Number: [id number] / [id number] Procedure: XR - Chest 1 View X-Ray CPT Code: 61622 FULL RESULT: EXAM: CHEST RADIOGRAPHY EXAM DATE: 07/08/2018 07:19 PM. CLINICAL HISTORY: Shortness of breath. COMPARISON: CHEST 2 VIEW 07/06/2018. TECHNIQUE: 1 view. FINDINGS: Lungs/Pleura: Patient rotated to the left. No focal opacities evident. No pleural effusion. No pneumothorax. Mediastinum: Normal heart size. Dense mitral valve calcification. Other: No fractures identified. IMPRESSION: No acute findings. Rotated to the left, with dense mitral valve calcification again noted. RADIA
--- NOTE | 2018-07-08 20:09 | XRAY Report ---
Reason: PEG location Procedure Date: 07/08/2018 Accession Number: [id number] / [id number] Procedure: XR - Abdomen 1 View X-Ray CPT Code: 26587 FULL RESULT: EXAM: ABDOMEN RADIOGRAPHY EXAM DATE: 07/08/2018 07:19 PM. CLINICAL HISTORY: PEG location. COMPARISON: ABDOMEN/PELVIS W/O 05/09/2018 7:40 AM. TECHNIQUE: 1 view. FINDINGS: Bowel Gas Pattern: Within normal limits. No dilated loops. Contrast retained in the colon. Other: Tip of PEG tube projects over the lower body of the stomach. Advanced vascular calcifications noted in the pelvis. Cholecystectomy clips. Rounded calcification medial to the cholecystectomy clips, possibly renal or choledochal. IMPRESSION: PEG tube tip over the lower body of the stomach. RADIA
[2018-07-08 20:13] LABS: PLATELET ESTIMATE, MANUAL NORMAL (130-450,000) (NORMAL); PLATELET MORPHOLOGY NORMAL APPEARANCE (NORMAL); RBC MORPHOLOGY (MULTIPLE) NORMAL APPEARANCE (NORMAL)
--- NOTE | 2018-07-08 20:21 | OPERATIVE REPORT ---
DATE OF SERVICE: 07/08/2018 Physician: Mo Rocha MD PREOPERATIVE DIAGNOSES: 1. Dysphagia. 2. Metastatic lung cancer. 3. Inability to swallow solids and liquids. POSTOPERATIVE DIAGNOSES: 1. Dysphagia. 2. Metastatic lung cancer. 3. Inability to swallow solids and liquids. NAME OF PROCEDURE: PEG gastric feeding tube insertion. SURGEON: Mo Rocha MD. ANESTHESIA: PROCEDURE: The patient was properly identified during surgical pause, prepped and draped in a steril e fashion. Exposed the left upper quadrant and the abdomen. The gastroscope was inserted transorall y under conscious sedation provided by the AUTO REFINISHER. Gastroscope illuminated a spot in the left upper qu adrant. A percutaneous needle placement into this gastric lumen was observed with the gastroscope, a nd the flexible J-wire was inserted into the gastric lumen. The wire was then snared with the gastro scope and pulled out the patient's esophagus and out through his mouth in a reverse fashion. The gas tric feeding tube with a mushroom tip was then passed down the guidewire and into the gastric lumen. This was done by following it with a gastroscope to assure there was no esophageal injury. Finally, the tube was fixed. The wire was removed, and the tube was fixed to the skin with the show worker' s fixation device and again viewing it with the gastroscope to ensure that it was not too tight again st the gastric mucosa, but that it was snugged up, so that it would not leak around outside the stoma ch. This was done. The caps were placed on the tube. Sterile dressing applied. He tolerated his p rocedure very well. TD: 07/08/2018 14:36
[2018-07-08] MEDS ORDERED: SODIUM CHLORIDE 0.9% 1,000 ML IV SCH ×2 (20:29→20:44)
[2018-07-08] MEDS ORDERED: MORPHINE 2 MG/ML CARPUJECT IVP PRN (20:38)
[2018-07-08] MEDS ORDERED: LIDOCAINE 2% URO-JET 5 ML SYRINGE UR ONE (20:44)
[2018-07-08] MEDS: ACETAMINOPHEN 1,000 MG/100 ML 100 ML IV PRN (21:10)
[2018-07-09] MEDS: DEXTROSE 5%-0.9% NACL 1,000 ML IV SCH ×2 (02:44→11:45)
[2018-07-09] MEDS: ACETAMINOPHEN 1,000 MG/100 ML 100 ML IV PRN ×2 (04:20→12:00)
[2018-07-09] MEDS: PANTOPRAZOLE 40 MG VIAL IVP SCH (06:32)
[2018-07-09 06:38] LABS: BASOPHILS % (AUTO) 0.1 %; EOSINOPHILS % (AUTO) 0.1 %; HGB - HEMOGLOBIN 8.2 g/dL (14.0-18.0); LYMPHOCYTES # (AUTO) 0.7 10^3/uL (1.5-3.5); LYMPHOCYTES % (AUTO) 6.9 %; MEAN CORPUSCULAR HEMOGLOBIN 33.6 pg (27.0-31.0); MEAN CORPUSCULAR HGB CONC 34.8 g/dL (32.0-36.0); MEAN CORPUSCULAR VOLUME 96.5 fL (80.0-94.0); MEAN PLATELET VOLUME 10.1 fL (7.4-11.4); MONOCYTES # (AUTO) 0.5 10^3/uL (0.0-1.0); MONOCYTES % (AUTO) 4.6 %; NEUTROPHILS # (AUTO) 9.4 10^3/uL (1.5-6.6); NEUTROPHILS % (AUTO) 88.3 %; PLT - PLATELET COUNT 149 10^3/uL (130-450); RED BLOOD COUNT 2.43 10^6/uL (4.70-6.10); RED CELL DISTRIBUTION WIDTH 13.5 % (12.0-15.0); WHITE BLOOD COUNT 10.6 x10^3/uL (4.8-10.8)
[2018-07-09 06:53] LABS: ALBUMIN 2.3 g/dL (3.2-5.5); ALBUMIN/GLOBULIN RATIO 1.1 (1.0-2.2); BILIRUBIN,TOTAL 0.6 mg/dL (0.2-1.0); CALCIUM 7.5 mg/dL (8.5-10.3); CREATININE 1.9 mg/dL (0.6-1.2); TOTAL PROTEIN 4.4 g/dL (6.7-8.2)
--- NOTE | 2018-07-09 15:36 | PROVIDER PROGRESS NOTE ---
Subjective - Prog Note Date Prog Note Date: 07/09/18 Prog Note Time: 15:34 - Subjective Subjective: The patient suffered a STEMI yesterday evening a few hours after his PEG tube placement. He was transferred to the ICU. Taken care of by our event mgr. This morning he has been seen by general surgery who states we can use the PEG tube. He is personally verifying placement thru direct visualization of his placment in the OR and not by the KUB. I have also spoken to his daughter and his grandson. We tried to get a hold of her last night but she had turned her phone on silent because she is so emotionally and physically exhausted of what is going on for the last week. Then she corrects herself and says essentially since his surgery/lobectomy. We spoke about Dr. Joseph olsen seeing the patient yesterday. Patient will be transferred to [facility] and Dr. olsen will be the provider with hospice care. She is amenable to that. The STEMI changed his status for the worse. It was already a poor prognosis and guarded condition. We are treating him with the philosophy toward comfort measures. He is awake. Alert. Still confused. But talks to the nurse. Tells her what he needs. He especially likes to keep his room door open because he likes watching people walk by. He does not like being alone in the room. He really is not processing what is happening. I did sit down and try and talk to him about his lung cancer, the fact that he had a heart attack. He is partially deaf which makes it harder. I broke it down to the simplest sentences and loudest was possible. He smiles. Really does not understand what is happening. Current Medications - Current Medications Current Medications: Active Medications Albuterol () 2.5 mg INH RTQ4H PRN PRN Reason: Wheezing Acetaminophen (Ofirmev) 100 mls @ 400 mls/hr IV Q6HR PRN PRN Reason: PAIN Last Infusion: 07/09/18 12:15 Dose: Infused Dextrose/Sodium Chloride (D5ns) 1,000 mls @ 125 mls/hr IV .Q8H ADRIAN Last Admin: 07/09/18 11:45 Dose: 125 mls/hr Morphine Sulfate (Morphine (Carpuject)) 2 mg IVP Q2HR PRN PRN Reason: Dyspnea Ondansetron HCl (Zofran Inj) 4 mg IVP Q6HR PRN PRN Reason: Nausea / Vomiting Last Admin: 07/08/18 16:22 Dose: 4 mg Pantoprazole Sodium (Protonix) 40 mg IVP QDAC [facility] Last Admin: 07/09/18 06:32 Dose: 40 mg Saccharomyces Boulardii (Florastor) 250 mg PO BIDWM [facility] Sodium Chloride (Normal Saline Flush 0.9%) 10 ml IVP PRN PRN PRN Reason: NEEDED PER PROVIDER ORDERS Last Admin: 07/08/18 07:43 Dose: 20 ml Sodium Chloride (Normal Saline Flush 0.9%) 10 ml IVP 0100,0900,1700 [facility] Last Admin: 07/08/18 16:22 Dose: 10 ml Finasteride 5 mg PO DAILY 09/11/13 Albuterol Sulfate [Proair Respiclick] 1 - 2 puffs INH Q4H PRN 02/17/18 Multivitamin [Theragran] 1 tab PO DAILY 02/17/18 oxyCODONE [Roxicodone] 0.5 - 1 tab PO Q6HR PRN 06/22/18 Acetaminophen 500 - 1,000 mg PO TID PRN 07/06/18 Metoprolol Succinate [Metoprolol Succinate] 100 mg PO DAILY 07/06/18 diphenhydrAMINE [Benadryl] 25 - 50 mg PO QPM PRN 07/06/18 Objective - Vital Signs/Intake & Output Reviewed Vital Signs: Yes Vital Signs: Vital Signs Pulse Resp BP Pulse Ox 07/09/18 15:00 94 18 90/56 L 100 07/09/18 14:00 18 87/60 L 99 07/09/18 13:00 97 17 100/59 L 100 07/09/18 12:00 99 14 93/49 L 100 Intake & Output: Intake & Output 07/06/18 07/07/18 07/08/18 07/09/18 23:59 23:59 23:59 23:59 Intake Total 1000 3100 2300 1200 Output Total 200 1025 545 111 Balance 800 2075 1755 1089 - Objective General Appearance: positive: No acute distress, Other (He is laying almost flat in the bed. Eyes closed. When he does wake in his eyes tear up at the ceiling. He does follow you, and speak with a very weak voice is almost inaudible. So weak he is not able to turn his head or turn himself from side to side and relies on the nurses.) Eyes Bilateral: positive: PERRL ENT: positive: Dry mucous membranes Neck: positive: Other (JVD present). negative: Stiff neck, Carotid bruit, Swelling/bruising Respiratory: positive: Chest non-tender, No respiratory distress, Rhonchi. negative: Wheezes, Rales Cardiovascular: positive: Irregularly irregular, Systolic murmur. negative: Gallop/S4 Abdomen: positive: Non-tender, No organomegaly, Nml bowel sounds, No distention Skin: positive: Warm, Pallor, Other (at times his hands, feet and knees very cold.) Neurologic/Psychiatric: positive: CN's nml (2-12) (Deaf), Disoriented to person (At times), Disoriented to place (At times), Disoriented to time, Weakness ( Generalized, completely dependent on nursing for ADLs. Sharp turn for the worse from last night.), Other (I think his memory loss and dementia really do impede his ability to understand what is happening. Daughter is his advocate.) - Lab Results Fish Bones: 07/09/18 06:24 07/09/18 06:24 Other Labs: Lab Results x24hrs 07/09/18 07/09/18 07/09/18 Range/Units 06:24 06:24 06:24 WBC 10.6 (4.8-10.8) x10^3/uL RBC 2.43 L (4.70-6.10) 10^6/uL Hgb 8.2 L (14.0-18.0) g/dL Hct 23.5 L (42.0-52.0) % MCV 96.5 H (80.0-94.0) fL MCH 33.6 H (27.0-31.0) pg MCHC 34.8 (32.0-36.0) g/dL RDW 13.5 (12.0-15.0) % Plt Count 149 (130-450) 10^3/uL MPV 10.1 (7.4-11.4) fL Neut # (Auto) 9.4 H (1.5-6.6) 10^3/uL Lymph # (Auto) 0.7 L (1.5-3.5) 10^3/uL [place] # (Auto) 0.5 (0.0-1.0) 10^3/uL Eos # (Auto) 0.0 (0.0-0.7) 10^3/uL Baso # (Auto) 0.0 (0.0-0.1) 10^3/uL Absolute Nucleated RBC 0.00 x10^3/uL Nucleated RBC % 0.0 /100WBC Manual Slide Review Platelet Estimate (NORMAL) Platelet Morphology (NORMAL) RBC Morph Micro Appear (NORMAL) Sodium 137 (135-145) mmol/L Potassium 4.2 (3.5-5.0) mmol/L Chloride 112 H (101-111) mmol/L Carbon Dioxide 19 L (21-32) mmol/L Anion Gap 6.0 (6-13) BUN 23 H (6-20) mg/dL Creatinine 1.9 H (0.6-1.2) mg/dL Estimated GFR (MDRD) 34 L (>89) Glucose 179 H (70-100) mg/dL POC Whole Bld Glucose (70 - 100) mg/dL Lactic Acid (0.5-2.2) mmol/L Calcium 7.5 L (8.5-10.3) mg/dL Total Bilirubin 0.6 (0.2-1.0) mg/dL AST 52 H (10-42) IU/L ALT 17 (10-60) IU/L Alkaline Phosphatase 42 (42-121) IU/L Troponin I 13.28 H* (<0.49) ng/mL Total Protein 4.4 L (6.7-8.2) g/dL Albumin 2.3 L (3.2-5.5) g/dL Globulin 2.1 (2.1-4.2) g/dL Albumin/Globulin Ratio 1.1 (1.0-2.2) 07/08/18 07/08/18 07/08/18 Range/Units 19:45 18:43 06:24 WBC 17.6 H (4.8-10.8) x10^3/uL RBC 3.21 L (4.70-6.10) 10^6/uL Hgb 10.5 L (14.0-18.0) g/dL Hct 31.4 L (42.0-52.0) % MCV 97.9 H (80.0-94.0) fL MCH 32.6 H (27.0-31.0) pg MCHC 33.3 (32.0-36.0) g/dL RDW 13.8 (12.0-15.0) % Plt Count 197 (130-450) 10^3/uL MPV 10.7 (7.4-11.4) fL Neut # (Auto) 14.4 H (1.5-6.6) 10^3/uL Lymph # (Auto) 2.1 (1.5-3.5) 10^3/uL [place] # (Auto) 1.1 H (0.0-1.0) 10^3/uL Eos # (Auto) 0.0 (0.0-0.7) 10^3/uL Baso # (Auto) 0.1 (0.0-0.1) 10^3/uL Absolute Nucleated RBC 0.00 x10^3/uL Nucleated RBC % 0.0 /100WBC Manual Slide Review Indicated Platelet Estimate NORMAL (130-450,000) (NORMAL) Platelet Morphology NORMAL APPEARANCE (NORMAL) RBC Morph Micro Appear NORMAL APPEARANCE (NORMAL) Sodium (135-145) mmol/L Potassium (3.5-5.0) mmol/L Chloride (101-111) mmol/L Carbon Dioxide (21-32) mmol/L Anion Gap (6-13) BUN (6-20) mg/dL Creatinine (0.6-1.2) mg/dL Estimated GFR (MDRD) (>89) Glucose (70-100) mg/dL POC Whole Bld Glucose 252 H (70 - 100) mg/dL Lactic Acid 1.2 (0.5-2.2) mmol/L Calcium (8.5-10.3) mg/dL Total Bilirubin (0.2-1.0) mg/dL AST (10-42) IU/L ALT (10-60) IU/L Alkaline Phosphatase (42-121) IU/L Troponin I (<0.49) ng/mL Total Protein (6.7-8.2) g/dL Albumin (3.2-5.5) g/dL Globulin (2.1-4.2) g/dL Albumin/Globulin Ratio (1.0-2.2) Assessment/Plan - Problem List (1) Acute MN, inferior wall, initial episode of care Impression: Presented as sudden hypotension, severe diaphoresis, and severe left shoulder pain. EKG confirmed changes, and troponin peaked at 13.28. Last night his troponin with the episode was canceled. I am not clear why. But this morning it is definitely elevated. We are concentrating on comfort measures only. This does not change his poor prognosis or status. It only makes it slightly worse.Labs this morning show HCO3 that is 19. Chloride is going up. BUN is stable but creatinine going up. Random glucose 179. At this point, I will be stopping labs. Stop and blood draws. Checking blood pressures only as necessary. Continue to plan to transfer to [facility] if he stays relatively stable overnight. 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 All of this has led to inability to eat very well. In the last few weeks has been unable to keep food or liquid down. A PEG was scheduled and done. We will be using it at the request of the daughter. (3) Non-small cell lung cancer with metastasis Impression: He is status post lobectomy. He was a T2 N0. Initially it was thought that he would have the PEG, improve his nutrition, and stabilize his downward spiral. With the CT done during this admission it looks like he has a new spiculated lesion in the right lung and a eroding node that may be cancer. It is not proven but strongly suspected it is metastatic non-small lung cancer. As such the patient is transition to hospice when he gets to [facility]. Our plan is for him to go tomorrow if condition is stable and he is not imminently dying. Dr. Olsen will be his primary care provider there.
[2018-07-09] MEDS ORDERED: CARBOXYMETHYLCELLULOSE OPHTH DROPS EACHEYE PRN (15:54)
[2018-07-09] MEDS ORDERED: ATROPINE 1% OPHTH DROPS 2 ML SL PRN (15:54)
[2018-07-09] MEDS ORDERED: ACETAMINOPHEN 160 MG/5 ML SUSP UDC PO PRN (15:54)
[2018-07-09] MEDS: SACCHAROMYCES BOULARDII 250 MG CAPSULE PO SCH ×2 (16:09→17:23)
[2018-07-09] MEDS: SODIUM CHLORIDE FLUSH 0.9% 10 ML SYRINGE IVP SCH ×2 (17:18→21:09)
[2018-07-10] MEDS: SODIUM CHLORIDE 0.9% 500 ML IV PRN ×2 (05:37→23:54)
[2018-07-10] MEDS: ACETAMINOPHEN 1,000 MG/100 ML 100 ML IV PRN (10:53)
[2018-07-10] MEDS: SACCHAROMYCES BOULARDII 250 MG CAPSULE PO SCH ×2 (10:53→16:27)
[2018-07-10] MEDS: SODIUM CHLORIDE FLUSH 0.9% 10 ML SYRINGE IVP SCH ×3 (11:00→16:27)
--- NOTE | 2018-07-10 11:11 | PROVIDER PROGRESS NOTE ---
Subjective - Prog Note Date Prog Note Date: 07/10/18 Prog Note Time: 11:09 - Subjective Subjective: He smiles. Tells me everything is fine. Does not feel particularly uncomfortable. Really does not seem to understand what happened to him. When I do trying discuss things such as worries going, how is he being taken care of , he found a little bit and does not seem to follow. He denies chest pain. The shoulder pain is gone. I transitioned him from ICU to MedSur status. He is comfort measures only. Current Medications - Current Medications Current Medications: Active Medications Acetaminophen (Tylenol) 640 mg PO Q4H PRN PRN Reason: Fever >101 Albuterol () 2.5 mg INH RTQ4H PRN PRN Reason: Wheezing Atropine Sulfate (Isopto Atropine 1% Ophth Drops) 1 - 4 drops SL Q2H PRN PRN Reason: Excessive secretions Carboxymethylcellulose (Refresh 1% Ophth Drops) 1 drops EACHEYE QID PRN PRN Reason: Dry Eye Acetaminophen (Ofirmev) 100 mls @ 400 mls/hr IV Q6HR PRN PRN Reason: PAIN Last Admin: 07/10/18 10:53 Dose: 400 mls/hr Sodium Chloride (Normal Saline 0.9%) 500 mls @ 0 mls/hr IV Q24H PRN; TKO PRN Reason: TKO RATE Last Admin: 07/10/18 05:37 Dose: 30 mls/hr Morphine Sulfate (Morphine (Carpuject)) 2 mg IVP Q2HR PRN PRN Reason: Dyspnea Ondansetron HCl (Zofran Inj) 4 mg IVP Q6HR PRN PRN Reason: Nausea / Vomiting Last Admin: 07/08/18 16:22 Dose: 4 mg Saccharomyces Boulardii (Florastor) 250 mg PO BIDWM ADRIAN Last Admin: 07/10/18 10:53 Dose: 250 mg Sodium Chloride (Normal Saline Flush 0.9%) 10 ml IVP PRN PRN PRN Reason: NEEDED PER PROVIDER ORDERS Last Admin: 07/08/18 07:43 Dose: 20 ml Sodium Chloride (Normal Saline Flush 0.9%) 10 ml IVP 0100,0900,1700 [facility] Last Admin: 07/10/18 11:00 Dose: Not Given Finasteride 5 mg PO DAILY 09/11/13 Albuterol Sulfate [Proair Respiclick] 1 - 2 puffs INH Q4H PRN 02/17/18 Multivitamin [Theragran] 1 tab PO DAILY 02/17/18 oxyCODONE [Roxicodone] 0.5 - 1 tab PO Q6HR PRN 06/22/18 Acetaminophen 500 - 1,000 mg PO TID PRN 07/06/18 Metoprolol Succinate [Metoprolol Succinate] 100 mg PO DAILY 07/06/18 diphenhydrAMINE [Benadryl] 25 - 50 mg PO QPM PRN 07/06/18 Objective - Vital Signs/Intake & Output Reviewed Vital Signs: Yes Vital Signs: Vital Signs x48h Temp Pulse Resp BP Pulse Ox 07/10/18 08:11 36.9 C 104 H 19 121/66 98 Intake & Output: Intake & Output 07/07/18 07/08/18 07/09/18 07/10/18 23:59 23:59 23:59 23:59 Intake Total 3100 2300 3794 237 Output Total 1025 545 296 300 Balance 2075 1755 3498 -63 - Objective General Appearance: positive: No acute distress, Alert, Other (Yesterday he lay flat in the bed, mouth open, eyes closed and appeared lethargic and slightly obtunded. Arms were at the side. Today, he is lying quietly in his back. Mouth is closed. He appears more to be sleeping. And this time his arms are crossed across his chest. He wakens quite easily with my voice.) Eyes Bilateral: positive: PERRL ENT: positive: Dry mucous membranes Neck: positive: No JVD. negative: Stiff neck, Carotid bruit Respiratory: positive: Chest non-tender, Rhonchi. negative: Wheezes, Rales Cardiovascular: positive: Irregularly irregular, Systolic murmur. negative: Gallop/S4, Friction rub Abdomen: positive: Non-tender, No organomegaly, Nml bowel sounds Skin: positive: Warm, Dry, Pallor Extremities: positive: Non-tender, No pedal edema Neurologic/Psychiatric: positive: CN's nml (2-12), Motor nml, Disoriented to person, Disoriented to place, Disoriented to time, Weakness - Lab Results Fish Bones: 07/09/18 06:24 07/09/18 06:24 ABX Reporting Has patient been on IV antibiotics over the past 48 hours?: No Assessment/Plan - Problem List (1) Acute [place], inferior wall, initial episode of care Impression: Presented as sudden hypotension, severe diaphoresis, and severe left shoulder pain a few hours after his PEG. EKG confirmed changes, and troponin on 98 am was at 13.28. 07/08 troponin with the episode was canceled. I am not clear why. We are concentrating on comfort measures only. This does not change his poor prognosis or status. It only makes it slightly worse. Labs 07/09 morning show HCO3 that is 19. Chloride is going up. BUN is stable but creatinine going up. Random glucose 179. I have stopped labsand blood draws. Checking blood pressures only as necessary. Continue to plan to transfer to [facility] today if he remained stable and was not imminently dying. This morning he is stable. Comfortable. I think he can be transferred to [facility]. However [facility] cannot confirm that the have received a request for [facility] bed yet. As such we cannot be sure if he can go with a Medicaid bed yet. He will stay here till tomorrow when [facility] offices are open.We continue with Tylenol, antiemetics, pain meds. Comfort measures only. 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 All of this has led to inability to eat very well. In the last few weeks has been unable to keep food or liquid down. A PEG was scheduled and done. We are using it and there is been no complications. (3) Non-small cell lung cancer with metastasis Impression: He is status post lobectomy. He was a T2 N0. Initially it was thought that he would have the PEG, improve his nutrition, and stabilize his downward spiral. With the CT done during this admission it looks like he has a new spiculated lesion in the right lung and a eroding node that may be cancer. It is not proven but strongly suspected it is metastatic non-small lung cancer. As such the patient is transition to hospice when he gets to [facility]. Our plan is for him to go tomorrow if condition is stable and he is not imminently dying. Dr. Person will be his primary care provider there.
[2018-07-11] MEDS: SODIUM CHLORIDE FLUSH 0.9% 10 ML SYRINGE IVP SCH ×3 (01:00→15:41)
[2018-07-11] MEDS: ACETAMINOPHEN 1,000 MG/100 ML 100 ML IV PRN (01:03)
[2018-07-11] MEDS: MORPHINE SOL 10 MG/0.5 ML SYRINGE PO PRN ×2 (06:40→11:01)
[2018-07-11] MEDS: SACCHAROMYCES BOULARDII 250 MG CAPSULE PO SCH ×2 (11:08→16:13)
--- NOTE | 2018-07-11 11:29 | Discharge Plan ---
"Discharge Plan [facility] SNF / [facility] - Discharge Plan And Transition Orders Disposition: 03 SNF DC/Xfer Condition: Poor Allergies and Adverse Reactions: Allergies Allergy/AdvReac Type Severity Reaction Status Date / Time No Known Drug Allergies Allergy Verified 07/06/18 08:35 - SNF / ASSISTED Transition Orders Admit to (Facility): [facility] Under the care of (Name): Dr. Joseph Person and Dr. Eric Carter Discharge Diagnosis: metastatic non-small lung cancer. severe protein calorie malnutrition. s/p PEG. STEMI of inferior wall Medicare Certification Statement: I certify that [facility] senior care care is medically necessary on a continuing basis for any of the conditions for which she/he is receiving care during hospitalization. Notify PCP of admission and forward orders to primary provider for signature. Other Notification Orders: Call PCP immediately if patient develops dyspnea, chest pain/tightness or edema. House Bowel Program: Yes Additional Bowel Program Orders: If no BM after 2 days, nurse may give M.O.M. 30ml PO PRN and/or ducolax Supp 1 NE and/or JUSTEN 250mg P.O., and/or senna 1-2 tabs PO. On day 3 nurse may give repeat above order until residents constipation is resolved. Annual Influenza Vaccine (between Jul 02 and January 29): Yes Two-step PPD per [facility] [id number] or approved exception documents: Yes Medication Orders: PLEASE REFER TO THE DISCHARGE MEDICATION LIST. Insulin Orders?: No If Yes, Add SNF - Insulin Orders Section (see tipsheet): - Diet Type: Tube feeding (55 cc/hr) Liquids: [place] thick May have monthly special meal: No - Therapies | Activity Rehabilitation Potential: Maintain present ADL Functional Activity: Activity as Tolerated"
--- NOTE | 2018-07-12 03:15 | DISCHARGE SUMMARY ---
Physician: Nicolasa Hussein MD DATE OF ADMISSION: 07/06/2018 DATE OF DISCHARGE: 07/11/2018 DISCHARGE DIAGNOSES 1. Acute myocardial infarction, inferior wall, initial episode of care. 2. Dysphagia causing pulmonary aspiration with swallowing. 3. Non-small cell lung cancer with metastases. 4. Moderate protein-calorie malnutrition. 5. Atrial fibrillation and flutter. 6. Dehydration. 7. Acute renal failure superimposed on chronic kidney disease stage 3. 8. Controlled type 2 diabetes mellitus, without complication, without long- term use of insulin. DISCHARGE MEDICATIONS 1. Acetaminophen 500 mg every 6 hours as needed for pain, fever, or headache. 2. Albuterol via nebulizer every 4-6 hours as needed for wheezing. 3. Atropine ophthalmic solution sublingual every 2 hours as needed for excessive secretions. 4. Oxycodone 5 mg tablet 1/2 to 1 tablet every 6 hours as needed for pain. PRINCIPAL PROCEDURE: PEG gastric feeding tube insertion. HOSPITAL COURSE: The patient is an absolutely yasmin 82-year-old gentleman who has been failing because of inability to swallow or drink for the last few weeks. He had non-small cell lung cancer resected approximately two months ago. At that time, was T2N0 staging. He never quite recovered from a swallowing perspective and has been gradually losing more and more weight. He has lost more than 7.5% of his body weight in the last three months with a severely reduced functional capacity. He has become more and more bedbound and dependent on his daughter for activities of daily living. He has been unable to keep anything down of any substance for the last four weeks. He has severe muscle wasting because of this. At this point in time, he was felt to be recoverable with regard to nutrition because of his cancer status being T2N0. He came to the hospital dehydrated and malnourished and was seen in the emergency room. It was felt that he could be hydrated and prepared for surgery for the PEG tube. His INR could be reversed. We could treat this malnourished, dehydrated elderly gentleman in preparation for the PEG tube. CT esophagram was done to evaluate his esophagus for EGD. Unfortunately, that CT of the chest showed interval increase in a dominant spiculated ground-glass opacity in the posterior segment of the right upper lobe. It was barely visible on previous CT 12/21/2017. He also has multiple new additional faint patchy ground-glass opacities in the posterior segment of the right upper lobe. He has marked interval increase in subcarinal lymph nodes that are now necrotic. A moderate, stable hiatal hernia. Further wedging of a T7 vertebral body. A 7-mm nonobstructing right renal stone. An exophytic cyst in the left kidney. This led General Surgery to believe that this patient now had metastatic non- small cell cancer, and it became a very difficult discussion with the family about whether they still wanted this PEG tube or not. In the end the daughter, who was grief stricken, exhausted from the last few weeks of taking care of her father, opted to try and improve the quality of his life by feeding him and at least hydrating him and making him feel better. He underwent the PEG tube insertion. A few hours later, he then developed severe diaphoresis, grayish discoloration of his skin, and dropped to systolic pressure of 60. Stat EKG showed severe ST elevation in the inferolateral alicia, suspicious for an inferior posterior wall NV. Left shoulder was killing him. This is in the setting of a patient who now is to be comfort measures only. It has been decided that he would be transferred to hospice care and SNF care the next day. As such, the patient was transferred to ICU for comfort measures only. He did receive fluid boluses. Within 24 hours he was exhausted, but not having chest pain, systolic pressure normal. He was transitioned back to medical/surgical and he was alert and oriented. PEG tube is now being used for food and hydration. In no particular discomfort or pain. He is a delightful gentleman who likes to tease by showing us an eyeball that is on his counter and will pickling solution maker the eyeball, turn it toward you and say, "I can see you." Daughter confirmed that no further treatment was to be given to dad. She is his power of defense attorney. As such, he was transferred with a poor prognosis in stable condition to alf facility. Dr. Person will be his primary care provider, but Dr. Eric Carter will be hospital pharmacy director taking care of him. I did sign out with Dr. Crater at discharge. PHYSICAL EXAMINATION VITAL SIGNS: Temperature is 37.2, pulse is 100, blood pressure 110/54, respirations 18, 2 liters nasal cannula for 100% saturation. GENERAL: He is a pleasant, alert, oriented, elderly gentleman who is very cachectic, but skin turgor is much improved. Oral mucosa is much improved with regard to hydration. RESPIRATORY: Lungs have coarse basilar rhonchi. HEART: He has a slow, irregular rate and rhythm. ABDOMEN: Soft, nontender with normal bowel sounds and PEG tube in place. EXTREMITIES: Remarkable for profound muscle wasting in this yasmin cachectic, elderly, unfortunate gentleman. Greater than 30 minutes was spent in coordinating discharge. TD: 07/11/2018 18:34 [place]
[2018-07-12] MEDS: SODIUM CHLORIDE FLUSH 0.9% 10 ML SYRINGE IVP SCH ×2 (03:47→09:20)
[2018-07-12 07:40] VITALS: BP 144/75
[2018-07-12] MEDS: SACCHAROMYCES BOULARDII 250 MG CAPSULE PO SCH (09:19)
--- NOTE | 2018-07-13 09:01 | DISCHARGE SUMMARY ---
Physician: Krystle Boudreaux MD DATE OF ADMISSION: 07/06/2018 DATE OF DISCHARGE: 07/12/2018 HISTORY OF PRESENT ILLNESS: Please see the entire discharge summary from 07/11/2018, dictated by Dr. Nicolasa Hussein. The patient's discharge was held up on 07/11/2018 because of need for clarification of insurance coverage at the [facility] facility and acceptance into hospice care. There were no new medical issues between 07/11/2018 and 07/12/2018. DISCHARGE DIAGNOSES: Same as 07/11/2018. DISCHARGE MEDICATIONS: Same as 07/11/2018. HOSPITAL COURSE: See the note dictated on 07/11/2018. PHYSICAL EXAMINATION: See the note dictated on 07/11/2018. The patient was transferred in poor prognosis, but stable condition under the care of Dr. Person, his P CP; and Dr. Carter, the hospice social worker. CODE STATUS: DNR. TIME REQUIRED TO COMPLETE THIS ENTIRE DICTATION: Less than 30 minutes. cc: Joseph Person MD TD: 07/13/2018 08:36
== END 2018-07-12 11:10 | DRG 640 ==
LOC: ED 08:22 → MS3 12:53 → ICU 07-08 19:22 → MS3 07-09 21:13
PROVIDERS: ADMIT Nurse Practitioner Gerontology; ATTEND Specialist
PROC: 0DH63UZ Insertion of Feeding Device into Stomach, Percutaneous Approach (ICD-10-PCS; principal; 2018-07-08 14:00)
DX: E63.9 Nutritional deficiency, unspecified (principal); E43 Unspecified severe protein-calorie malnutrition; K22.0 Achalasia of cardia; N28.9 Disorder of kidney and ureter, unspecified; I10 Essential (primary) hypertension; I21.19 ST elevation (STEMI) myocardial infarction involving other coronary artery of inferior wall; Z68.1 Body mass index [BMI] 19.9 or less, adult; I48.92 Unspecified atrial flutter; N17.9 Acute kidney failure, unspecified; C34.92 Malignant neoplasm of unspecified part of left bronchus or lung; C78.01 Secondary malignant neoplasm of right lung; R13.10 Dysphagia, unspecified; I48.91 Unspecified atrial fibrillation; E86.0 Dehydration; I12.9 Hypertensive chronic kidney disease with stage 1 through stage 4 chronic kidney disease, or unspecified chronic kidney disease; E11.22 Type 2 diabetes mellitus with diabetic chronic kidney disease; N18.3 Chronic kidney disease, stage 3 (moderate); K44.9 Diaphragmatic hernia without obstruction or gangrene; N40.0 Benign prostatic hyperplasia without lower urinary tract symptoms; H91.90 Unspecified hearing loss, unspecified ear; M19.90 Unspecified osteoarthritis, unspecified site; K22.8 Other specified diseases of esophagus; Z66 Do not resuscitate; Z74.01 Bed confinement status; Z79.51 Long term (current) use of inhaled steroids; Z79.891 Long term (current) use of opiate analgesic; Z79.01 Long term (current) use of anticoagulants; Z90.2 Acquired absence of lung [part of]; Z87.891 Personal history of nicotine dependence
CPT/HCPCS: 36415; 51798; 71045; 71046; 71250; 74018; 74220; 80053; 80162; 81001; 81003; 83605; 83690; 83735; 84484; 85025; 85610; 85730; 87040; 87086; 87150; 93005; 96361; 96365; 96375; 99283; 99284